=== PATIENT | female | born 1950 | race Caucasian/White ===

== ENCOUNTER 2024-04-23 08:26 | Inpatient (IN) ==
--- NOTE | 2024-01-24 15:29 | PAT Medication Instructions ---
Medication Instructions Date of Service January 24, 2024 Home Medications acetaminophen 500 mg tablet 500 mg PO QID PRN Pain alendronate 70 mg tablet 70 mg PO WK amlodipine 5 mg tablet 5 mg PO QAM apixaban 2.5 mg tablet (Eliquis) 2.5 mg PO BID ascorbic acid 30 mg-collagen, hydrolyzed 833.3 mg tablet (Collagen Skin Renewal) 1 tab PO DAILY aspirin 81 mg capsule 81 mg PO DAILY atenolol 25 mg tablet 25 mg PO HS calcium 500 mg-vitamin D3 100 unit-vitamin K 40 mcg chewable tablet 1 tab PO BID cholecalciferol (vitamin D3) 25 mcg (1,000 unit) chewable tablet (Vitamin D3) 25 mcg PO BID clobetasol 0.05 % topical gel 1 applic topical DAILY PRN Skin Irritation folic acid 800 mcg tablet 0.16 mg PO BID gabapentin 100 mg capsule 300 mg PO HS hydroxychloroquine 200 mg tablet 200 mg PO BID indapamide 2.5 mg tablet 2.5 mg PO QAM ketoconazole 1 % shampoo 1 applic topical Q3D linaclotide 145 mcg capsule (Linzess) 145 mcg PO QAM loratadine 10 mg tablet (Claritin) 10 mg PO DAILY PRN Allergic Symptoms methotrexate 2.5 mg/mL oral solution 12.5 mg PO WK potassium chloride 20 mEq tablet,extended release 20 meq PO BID sertraline 50 mg tablet 50 mg PO HS ASK your prescriber and surgeon alendronate 70 mg tablet 70 mg PO WK apixaban 2.5 mg tablet (Eliquis) 2.5 mg PO BID hydroxychloroquine 200 mg tablet 200 mg PO BID methotrexate 2.5 mg/mL oral solution 12.5 mg PO WK STOP taking 2 weeks before surgery ascorbic acid 30 mg-collagen, hydrolyzed 833.3 mg tablet (Collagen Skin Renewal) 1 tab PO DAILY STOP taking 24 hours before surgery clobetasol 0.05 % topical gel 1 applic topical DAILY PRN Skin Irritation ketoconazole 1 % shampoo 1 applic topical Q3D DO NOT take the morning of surgery calcium 500 mg-vitamin D3 100 unit-vitamin K 40 mcg chewable tablet 1 tab PO BID cholecalciferol (vitamin D3) 25 mcg (1,000 unit) chewable tablet (Vitamin D3) 25 mcg PO BID folic acid 800 mcg tablet 0.16 mg PO BID linaclotide 145 mcg capsule (Linzess) 145 mcg PO QAM loratadine 10 mg tablet (Claritin) 10 mg PO DAILY PRN Allergic Symptoms indapamide 2.5 mg tablet 2.5 mg PO QAM potassium chloride 20 mEq tablet,extended release 20 meq PO BID Take morning of surgery With a small sip of water, OTHERWISE NOTHING TO EAT OR DRINK AFTER MIDNIGHT: acetaminophen 500 mg tablet 500 mg PO QID PRN Pain (if needed) amlodipine 5 mg tablet 5 mg PO QAM aspirin 81 mg capsule 81 mg PO DAILY (unless surgeon directed otherwise) Take evening before surgery acetaminophen 500 mg tablet 500 mg PO QID PRN Pain (if needed) atenolol 25 mg tablet 25 mg PO HS calcium 500 mg-vitamin D3 100 unit-vitamin K 40 mcg chewable tablet 1 tab PO BID cholecalciferol (vitamin D3) 25 mcg (1,000 unit) chewable tablet (Vitamin D3) 25 mcg PO BID folic acid 800 mcg tablet 0.16 mg PO BID gabapentin 100 mg capsule 300 mg PO HS loratadine 10 mg tablet (Claritin) 10 mg PO DAILY PRN Allergic Symptoms (if needed) potassium chloride 20 mEq tablet,extended release 20 meq PO BID sertraline 50 mg tablet 50 mg PO HS Other Notes If you have any questions please call us at [phone] or [phone] or [phone] or [phone]
--- NOTE | 2024-02-01 12:29 | Anesthesiology Consultation ---
Date of Service February 01, 2024 Assessment & Plan (1) Encounter for pre-operative examination: - Infectious disease screening: Per assessment on 02/01/24- No known recent infectious disease contacts or current infectious disease symptoms. - Eliquis instructions per surgeon/prescriber - Patient acceptable risk for surgery pending surgeon-ordered PCP (Yoko GOU, appt 02/08) and cardiology (Dr. Naqvi/Simone, appt 02/09) preop evaluations. Chart Review Chart Review: Patient seen in Pre Admission Testing Teaching & Discussion Pre-Anesthesia Teaching/Discussion Notes: Instructed NPO after midnight before surgery,except medications with 15 cc of water. Medication instructions provided according to the PAT guidelines. History Surgery Operation Date: 02/24/24 07:45 Proposed Procedures p L3-S1 Decompression and Fusion, Spinal Cord Monitoring - Dudley Pyle DO Height/Weight Height: 5 ft 5 in Weight: 97.5 kg Allergies Allergy/AdvReac Type Severity Reaction Status Date / Time metronidazole [From Flagyl] Allergy Unknown Unknown Verified 01/24/24 13:32 Sulfa (Sulfonamide Allergy Unknown Hives Verified 01/24/24 13:32 Antibiotics) tetracycline Allergy Unknown Facial Verified 02/01/24 13:28 swelling codeine AdvReac Unknown Gastrointestinal Verified 01/24/24 13:32 Upset oxycodone AdvReac Unknown Gastrointestinal Verified 01/24/24 13:32 Upset Medications Home Medications Medication Instructions Recorded Confirmed Last Taken acetaminophen 500 mg tablet 500 mg PO QID PRN Pain 01/24/24 01/24/24 Unknown alendronate 70 mg tablet 70 mg PO WK 01/24/24 01/24/24 Unknown amlodipine 5 mg tablet 5 mg PO QAM 01/24/24 01/24/24 Unknown apixaban 2.5 mg tablet (Eliquis) 2.5 mg PO BID 01/24/24 01/24/24 Unknown ascorbic acid 30 mg-collagen, 1 tab PO DAILY 01/24/24 01/24/24 Unknown hydrolyzed 833.3 mg tablet (Collagen Skin Renewal) aspirin 81 mg capsule 81 mg PO DAILY 01/24/24 01/24/24 Unknown atenolol 25 mg tablet 25 mg PO HS 01/24/24 01/24/24 Unknown calcium 500 mg-vitamin D3 100 1 tab PO BID 01/24/24 01/24/24 Unknown unit-vitamin K 40 mcg chewable tablet cholecalciferol (vitamin D3) 25 25 mcg PO BID 01/24/24 01/24/24 Unknown mcg (1,000 unit) chewable tablet (Vitamin D3) clobetasol 0.05 % topical gel 1 applic topical DAILY PRN Skin 01/24/24 01/24/24 Unknown Irritation folic acid 800 mcg tablet 0.16 mg PO BID 01/24/24 01/24/24 Unknown gabapentin 100 mg capsule 300 mg PO HS 01/24/24 01/24/24 Unknown hydroxychloroquine 200 mg tablet 200 mg PO BID 01/24/24 01/24/24 Unknown indapamide 2.5 mg tablet 2.5 mg PO QAM 01/24/24 01/24/24 Unknown ketoconazole 1 % shampoo 1 applic topical Q3D 01/24/24 01/24/24 Unknown linaclotide 145 mcg capsule 145 mcg PO QAM 01/24/24 01/24/24 Unknown (Linzess) loratadine 10 mg tablet (Claritin) 10 mg PO DAILY PRN Allergic 01/24/24 01/24/24 Unknown Symptoms methotrexate 2.5 mg/mL oral 12.5 mg PO WK 01/24/24 01/24/24 Unknown solution potassium chloride 20 mEq 20 meq PO BID 01/24/24 01/24/24 Unknown tablet,extended release sertraline 50 mg tablet 50 mg PO HS 01/24/24 01/24/24 Unknown Past Medical History Medical History Anxiety Back pain COPD (chronic obstructive pulmonary disease) Depression Fibromyalgia HTN (hypertension) Follows with Dr. Naqvi/Simone Hx of deep venous thrombosis (~2022) RLE Taking Eliquis IBS (irritable bowel syndrome) Neuropathy Osteoarthritis Pre-diabetes Pulmonary nodule Monitoring Follows w/[facility] Pulmonology Rheumatoid arthritis Seasonal allergies Sleep apnea CPAP (compliant) Exercise / Class Metabolic Activity III < 4 Walking/Shop/Light housework Past Surgical History Surgical History History of bilateral knee replacement History of esophagogastroduodenoscopy (EGD) History of right shoulder replacement Hx of bilateral cataract extraction Hx of cardiac catheterization 2012- no stents, "normal coronary arteries" Hx of cholecystectomy Hx of colonoscopy Hx of hysterectomy Past Anesthesia History No Hx of Anesthesia Complications and No Family Hx of Anesthesia Complications History of PONV No Hx of PONV and No Hx of Motion Sickness Social History Smoking Status: Never smoker Do You Dip or Chew Tobacco: No Hx Alcohol Use: No Hx Substance Use: No substance use type: does not use Review of Systems Patient denies chest pain, shortness of breath, fever, chills, cough, wheezing, palpitations. Physical Exam Vital Signs BP 113/76 P 69 SP02 96%RA RESP 16 Physical Full cervical extension range of motion. Full TMJ range of motion. TMD >3.5 finger breaths Mallampati Score II Dentition: full upper/lower dentures Lungs: clear throughout to auscultation Cardiac: regular rate and rhythm, no murmurs noted Spine: normal Carotid arteries: negative bruit Extremities: no LE edema Lab Results Anesthesia Preop Results Results Anesthesia Widget: WBC 8.53 K/ul (4.8-10.8) 02/01/24 Hgb 13.0 g/dl (12.0-16.0) 02/01/24 Hct 38.4 % (37.0-47.0) 02/01/24 Plt 243 K/uL (130-400) 02/01/24 Na 134 mmol/L (136-145) L 02/01/24 K 3.4 mmol/L (3.5-5.1) L 02/01/24 Cl 96 mmol/L (98-107) L 02/01/24 CO2 30 mmol/L (21-32) 02/01/24 BUN 15 mg/dl (6-23) 02/01/24 Creat 0.62 mg/dl (0.6-1.2) 02/01/24 Glucose Level 102 mg/dl (70-99(Fasting)) H 02/01/24 PT 11.9 Seconds (9.0-12.0) 02/01/24 PTT 30 Seconds (21-31) 02/01/24 INR 1.1 (0.9-1.1) 02/01/24 Urine Color Yellow 02/01/24 Urine Appearance Clear (Clear) 02/01/24 Urine pH 6.5 (4.5-7.5) 02/01/24 Urine Specific [place] 1.012 (1.000-1.030) 02/01/24 Urine Protein Negative (Negative) 02/01/24 Urine Glucose (UA) Negative (Negative) 02/01/24 Urine Ketones Negative (Negative) 02/01/24 Urine Blood Negative (Negative) 02/01/24 Urine Nitrite Negative (Negative) 02/01/24 Urine Bilirubin Negative (Negative) 02/01/24 Urine Urobilinogen Negative (Negative) 02/01/24 Urine Leukocyte Esterase Trace (Negative) H 02/01/24 Urine WBC (Auto) 0-5 /hpf (0-5) 02/01/24 Urine RBC (Auto) 6-10 /hpf (0-2) H 02/01/24 Urine Hyaline Casts (Auto) 0-2 /lpf (0-2) 02/01/24 Urine Epithelial Cells (Auto) 0-2 /hpf (0-2) 02/01/24 Urine Bacteria (Auto) None Seen (None Seen) 02/01/24 Blood Type A Positive 02/01/24 Antibody Screen NEGATIVE 02/01/24 Testing Electrocardiogram Date: 02/01/24 NSR at 70bpm. "Normal ECG" Chest X-Ray Date: 02/01/24 FINDINGS: The lungs are clear. Cardiomediastinal silhouette is within normal limits. No acute osseous abnormalities. No pleural effusion or pneumothorax. Right reverse shoulder arthroplasty changes are noted. IMPRESSION: No acute cardiopulmonary findings. Echocardiogram Date: 02/08/23 LVEF 55-60%. Mild AR/MR/TR. Grade 1 diastolic dysfunction. Cervical Spine Date: 02/01/24 FINDINGS: There is straightening of the normal cervical lordosis, possibly secondary to muscle spasm. Cervical height and alignment otherwise appear normal. C5-C6 and C6-C7 disc space narrowing with marginal osteophytes. No listhesis with flexion or extension. No osseous lesions or levels suspicious for fracture are seen. There is no evidence of prevertebal soft tissue swelling. IMPRESSION: Straightening of the normal cervical lordosis, possibly secondary to muscle spasm. Mild degenerative change without acute osseous abnormality of the cervical spine. No dynamic instability.
--- NOTE | 2024-04-06 10:25 | PAT Medication Instructions ---
Medication Instructions Date of Service April 06, 2024 Home Medications acetaminophen 500 mg tablet 500 mg PO QID PRN alendronate 70 mg tablet 70 mg PO Q7D amlodipine 5 mg tablet 5 mg PO QAM apixaban 2.5 mg tablet (Eliquis) 2.5 mg PO BID aspirin 81 mg capsule 81 mg PO HS atenolol 25 mg tablet 25 mg PO HS calcium 500 mg-vitamin D3 100 unit-vitamin K 40 mcg chewable tablet 1 tab PO BID cholecalciferol (vitamin D3) 25 mcg (1,000 unit) chewable tablet (Vitamin D3) 25 mcg PO BID clobetasol 0.05 % topical gel 1 applic topical DAILY PRN folic acid 800 mcg tablet 0.16 mg PO BID gabapentin 100 mg capsule 100 mg PO QAM hydroxychloroquine 200 mg tablet 200 mg PO BID indapamide 2.5 mg tablet 2.5 mg PO QAM ketoconazole 1 % shampoo 1 applic topical Q3D linaclotide 145 mcg capsule (Linzess) 145 mcg PO QAM potassium chloride 20 mEq tablet,extended release 20 meq PO BID sertraline 50 mg tablet 50 mg PO HS collagen 1 dose PO DAILY gabapentin 300 mg capsule 300 mg PO HS loratadine 10 mg tablet 10 mg PO DAILY PRN methotrexate sodium 2.5 mg tablet 12.5 mg PO Q7D sodium chloride 5 % eye drops (Tejinder 128) 1 drp ophthalmic (eye) QID STOP 7 days before surgery if okay with prescribing provider; notify PAT department if prescribing provider has concerns with stopping medication methotrexate sodium 2.5 mg tablet 12.5 mg PO Q7D ASK your prescriber and surgeon apixaban 2.5 mg tablet (Eliquis) 2.5 mg PO BID aspirin 81 mg capsule 81 mg PO HS hydroxychloroquine 200 mg tablet 200 mg PO BID indapamide 2.5 mg tablet 2.5 mg PO QAM STOP taking 2 weeks before surgery (or as soon as possible if surgery is within 2 weeks) calcium 500 mg-vitamin D3 100 unit-vitamin K 40 mcg chewable tablet 1 tab PO BID collagen 1 dose PO DAILY STOP taking 24 hours before surgery clobetasol 0.05 % topical gel 1 applic topical DAILY PRN ketoconazole 1 % shampoo 1 applic topical Q3D DO NOT take the morning of surgery alendronate 70 mg tablet 70 mg PO Q7D cholecalciferol (vitamin D3) 25 mcg (1,000 unit) chewable tablet (Vitamin D3) 25 mcg PO BID folic acid 800 mcg tablet 0.16 mg PO BID linaclotide 145 mcg capsule (Linzess) 145 mcg PO QAM potassium chloride 20 mEq tablet,extended release 20 meq PO BID loratadine 10 mg tablet 10 mg PO DAILY PRN Take morning of surgery With a small sip of water, OTHERWISE NOTHING TO EAT OR DRINK AFTER MIDNIGHT: acetaminophen 500 mg tablet 500 mg PO QID PRN(if needed) amlodipine 5 mg tablet 5 mg PO QAM gabapentin 100 mg capsule 100 mg PO QAM sodium chloride 5 % eye drops (Tejinder 128) 1 drp ophthalmic (eye) QID Take evening before surgery acetaminophen 500 mg tablet 500 mg PO QID PRN(if needed) atenolol 25 mg tablet 25 mg PO HS folic acid 800 mcg tablet 0.16 mg PO BID potassium chloride 20 mEq tablet,extended release 20 meq PO BID sertraline 50 mg tablet 50 mg PO HS gabapentin 300 mg capsule 300 mg PO HS sodium chloride 5 % eye drops (Tejinder 128) 1 drp ophthalmic (eye) QID Other Notes If you have any questions please call us at [phone] or [phone] or [phone] or [phone]
--- NOTE | 2024-04-09 11:16 | Anesthesiology Consultation ---
Date of Service April 09, 2024 Assessment & Plan (1) Encounter for pre-operative examination: awaiting: -upcoming 04/16/24 appointment with PCP, Ketan Donald, [facility]. - updated echocardiogram ordered by cardiology, Dr. Naqvi [facility] [place]. - cardiology clearance 03/28/24: "...EKG independently reviewed and interpreted by myself...sinus rhythm-low voltage in precordial leads...denies chest pain...01/2023 carotids-normal study...normal coronaries. ability to complete 4 METS...palpitations-stable brief, lasting seconds...likely PAC/PVC related...low risk...cleared for scheduled surgery..." Chart Review Chart Review: Pending: Refer to Additional Notes / Consult section and Patient seen in Pre Admission Testing Teaching & Discussion Pre-Anesthesia Teaching/Discussion Notes: Instructed NPO after midnight before surgery, except medications with 15 cc of water. Medication instructions provided according to the PAT guidelines. History Surgery Operation Date: 04/23/24 07:45 Proposed Procedures p L3-S1 Decompression and Fusion, Spinal Cord Monitoring - Dudley Pyle, Height/Weight Height: 5 ft 3 in Weight: 98.6 kg Allergies Allergy/AdvReac Type Severity Reaction Status Date / Time metronidazole [From Flagyl] Allergy Unknown Unknown Verified 04/04/24 09:56 Sulfa (Sulfonamide Allergy Unknown Hives Verified 04/04/24 09:56 Antibiotics) tetracycline Allergy Unknown Facial Verified 04/04/24 09:56 swelling codeine AdvReac Unknown Gastrointestinal Verified 04/04/24 09:56 Upset oxycodone AdvReac Unknown Gastrointestinal Verified 04/04/24 09:56 Upset diazepam [From Valium] AdvReac Gastrointestinal Verified 04/04/24 09:57 Upset Medications Home Medications Medication Instructions Recorded Confirmed Last Taken acetaminophen 500 mg tablet 500 mg PO QID PRN Pain 01/24/24 04/04/24 Unknown alendronate 70 mg tablet 70 mg PO Q7D 01/24/24 04/04/24 Unknown amlodipine 5 mg tablet 5 mg PO QAM 01/24/24 04/04/24 Unknown apixaban 2.5 mg tablet (Eliquis) 2.5 mg PO BID 01/24/24 04/04/24 Unknown aspirin 81 mg capsule 81 mg PO HS 01/24/24 04/04/24 Unknown atenolol 25 mg tablet 25 mg PO HS 01/24/24 04/04/24 Unknown calcium 500 mg-vitamin D3 100 1 tab PO BID 01/24/24 04/04/24 Unknown unit-vitamin K 40 mcg chewable tablet cholecalciferol (vitamin D3) 25 25 mcg PO BID 01/24/24 04/04/24 Unknown mcg (1,000 unit) chewable tablet (Vitamin D3) clobetasol 0.05 % topical gel 1 applic topical DAILY PRN Skin 01/24/24 04/04/24 Unknown Irritation folic acid 800 mcg tablet 0.16 mg PO BID 01/24/24 04/04/24 Unknown gabapentin 100 mg capsule 100 mg PO QAM 01/24/24 04/04/24 Unknown hydroxychloroquine 200 mg tablet 200 mg PO BID 01/24/24 04/04/24 Unknown indapamide 2.5 mg tablet 2.5 mg PO QAM 01/24/24 04/04/24 Unknown ketoconazole 1 % shampoo 1 applic topical Q3D 01/24/24 04/04/24 Unknown linaclotide 145 mcg capsule 145 mcg PO QAM 01/24/24 04/04/24 Unknown (Linzess) potassium chloride 20 mEq 20 meq PO BID 01/24/24 04/04/24 Unknown tablet,extended release sertraline 50 mg tablet 50 mg PO HS 01/24/24 04/04/24 Unknown collagen 1 dose PO DAILY 04/04/24 04/04/24 Unknown gabapentin 300 mg capsule 300 mg PO HS 04/04/24 04/04/24 Unknown loratadine 10 mg tablet 10 mg PO DAILY PRN Allergy Symptoms 04/04/24 04/04/24 Unknown methotrexate sodium 2.5 mg tablet 12.5 mg PO Q7D 04/04/24 04/04/24 Unknown sodium chloride 5 % eye drops 1 drp ophthalmic (eye) QID 04/04/24 04/04/24 Unknown (Tejinder 128) polyethylene glycol 3350 17 17 g PO QAM 04/09/24 04/09/24 Unknown gram/dose oral powder (Miralax) psyllium husk 0.52 gram capsule 0.52 g PO HS 04/09/24 04/09/24 Unknown Additional Notes: Patient was advised to not take miralax morning of surgery, can take metamucil the evening before surgery; these were also written on provided medication instructions. She denies additional medications or supplements. Past Medical History Medical History (Updated 04/09/24 @ 12:32 by Denise Gupta PA-C) Anxiety Back pain Constipation chronic, denies change or worsening COPD (chronic obstructive pulmonary disease) controlled, stable per pt; denies needing inhaler-states pulmonology advised her they felt she did not have COPD Depression Fibromyalgia History of diverticulitis last flare 6 months ago-denies needing surgery HTN (hypertension) controlled, stable per pt; follows with Dr. Naqvi/Simone Hx of deep venous thrombosis (~2022) RLE Taking Eliquis IBS (irritable bowel syndrome) Neck pain chronic, denies change or worsening, following with PCP and rheumatology Neuropathy feet Osteoarthritis Pre-diabetes Pulmonary nodule Monitoring Follows w/[facility] Pulmonology Rheumatoid arthritis Seasonal allergies Sleep apnea CPAP (compliant) Patient denies h/o stroke, seizures, heart attack, heart failure, or blood transfusions. Exercise / Class Metabolic Activity III < 4 Walking/Shop/Light housework (denies chest discomfort or shortness of breath with usual activities) Past Surgical History Surgical History History of bilateral knee replacement History of esophagogastroduodenoscopy (EGD) History of hernia repair (~2012) History of right shoulder replacement Hx of bilateral cataract extraction Hx of cardiac catheterization 2012- no stents, "normal coronary arteries" Hx of cholecystectomy Hx of colonoscopy Hx of hysterectomy Past Anesthesia History No Hx of Anesthesia Complications and No Family Hx of Anesthesia Complications History of PONV No Hx of PONV and No Hx of Motion Sickness Social History Smoking Status: Never smoker Do You Dip or Chew Tobacco: No Hx Alcohol Use: No Hx Substance Use: No substance use type: does not use Review of Systems Patient denies chest pain, shortness of breath, dyspnea on exertion, reflux, fever, chills, cough, wheezing, or palpitations. Physical Exam Vital Signs Vitals BP 109/71 P 67 TEMP 97.9 SP02 95% on RA RESP 18 Physical Patient resting comfortably in chair in no acute distress, alert and oriented, responding appropriately throughout visit Full cervical extension range of motion without pain TMD 3.5 finger breadths Mallampati Score 2 Dentition: edentulous, full upper and lower dentures Lungs: normal respiratory effort. Good air movement, clear throughout to auscultation, no adventitious breath sounds Cardiac: regular rate and rhythm, no murmurs noted Carotid arteries: negative bruit bilat Lab Results Anesthesia Preop Results Results Anesthesia Widget: PT 12.1 Seconds (9.0-12.0) H 04/09/24 PTT 31 Seconds (21-31) 04/09/24 INR 1.1 (0.9-1.1) 04/09/24 Urine Color Yellow 04/09/24 Urine Appearance Clear (Clear) 04/09/24 Urine pH 7.0 (4.5-7.5) 04/09/24 Urine Specific [place] 1.008 (1.000-1.030) 04/09/24 Urine Protein Negative (Negative) 04/09/24 Urine Glucose (UA) Negative (Negative) 04/09/24 Urine Ketones Negative (Negative) 04/09/24 Urine Blood Negative (Negative) 04/09/24 Urine Nitrite Negative (Negative) 04/09/24 Urine Bilirubin Negative (Negative) 04/09/24 Urine Urobilinogen Negative (Negative) 04/09/24 Urine Leukocyte Esterase 1+ (Negative) H 04/09/24 Urine WBC (Auto) 0-5 /hpf (0-5) 04/09/24 Urine RBC (Auto) 0-2 /hpf (0-2) 04/09/24 Urine Hyaline Casts (Auto) 0-2 /lpf (0-2) 04/09/24 Urine Epithelial Cells (Auto) 0-2 /hpf (0-2) 04/09/24 Urine Bacteria (Auto) None Seen (None Seen) 04/09/24 Blood Type A Positive 04/09/24 Antibody Screen NEGATIVE 04/09/24 Testing Laboratory Results 04/05/24 WBC: 5.1 H/H: PLATELETS: 175,000 SODIUM: 133 POTASSIUM: 4.2 CHLORIDE: 96 CO2: 28 BUN: 11 CREATININE: 0.5 GLUCOSE: 99 A1c: 5.8% Electrocardiogram Date: 03/28/24 Sinus rhythm, rate 77 bpm Low voltage in precordial leads Old anteroseptal infarct Chest X-Ray Date: 02/01/24 FINDINGS: The lungs are clear. Cardiomediastinal silhouette is within normal limits. No acute osseous abnormalities. No pleural effusion or pneumothorax. Right reverse shoulder arthroplasty changes are noted. IMPRESSION: No acute cardiopulmonary findings. Echocardiogram Date: 02/08/23 LVEF 55-60%. Mild AR/MR/TR. Grade 1 diastolic dysfunction. Cervical Spine Date: 02/01/24 FINDINGS: There is straightening of the normal cervical lordosis, possibly secondary to muscle spasm. Cervical height and alignment otherwise appear normal. C5-C6 and C6-C7 disc space narrowing with marginal osteophytes. No listhesis with flexion or extension. No osseous lesions or levels suspicious for fracture are seen. There is no evidence of prevertebal soft tissue swelling. IMPRESSION: Straightening of the normal cervical lordosis, possibly secondary to muscle spasm. Mild degenerative change without acute osseous abnormality of the cervical spine. No dynamic instability.
[2024-04-23] MEDS: LACTATED RINGER'S 1,000 ML IV SCH ×2 (09:32→10:01)
[2024-04-23] MEDS: LR 60ML/HR IV SCH (10:02)
[2024-04-23] MEDS ORDERED: PROPOFOL IV EMULSION 10 MG/ML 20 ML VIAL IV ONE (10:12)
[2024-04-23] MEDS ORDERED: fentaNYL citrate PF 100 MCG/2 ML VIAL ONE ×2 (10:12→12:49)
[2024-04-23] MEDS ORDERED: ROCURONIUM BROMIDE 10 MG/ML 5 ML VIAL IV ONE ×2 (10:12→13:04)
[2024-04-23] MEDS ORDERED: ONDANSETRON INJ 2 MG/ML 2 ML VIAL ONE (10:12)
[2024-04-23] MEDS ORDERED: DEXAMETHASONE SOD INJ 4 MG/ML VIAL ONE (10:12)
[2024-04-23] MEDS ORDERED: SUGAMMADEX SODIUM 200 MG/2 ML VIAL IV ONE (10:14)
[2024-04-23] MEDS: ACETAMINOPHEN 500 MG TAB PO SCH (10:18)
[2024-04-23] MEDS: GABAPENTIN 300 MG CAP PO SCH ×2 (10:19→20:08)
[2024-04-23] MEDS: CeleBREX 200 MG CAP PO SCH (10:19)
[2024-04-23] MEDS ORDERED: ONDANSETRON INJ 2 MG/ML 2 ML VIAL IV PRN (11:47)
[2024-04-23] MEDS ORDERED: ePHEDrine sulfate 50 MG/ML AMP IV PRN (11:47)
[2024-04-23] MEDS ORDERED: ATROPINE SULFATE 0.1 MG/ML 10ML SYR IV PRN (11:47)
--- NOTE | 2024-04-23 11:56 | History & Physical Bridge Note ---
Date of Service April 23, 2024 History & Physical Bridge Note I have examined the patient, reviewed the History & Physical and in the interval since the performance of the History & Physical I have noted the following changes of clinical significance: no changes noted
--- NOTE | 2024-04-23 11:57 | History & Physical Report ---
Date of Service April 23, 2024 Assessment & Plan (1) Multilevel lumbosacral spondylosis with radiculopathy: Plan: L3-S1 decompression and fusion History of Present Illness Chief Complaint: Back and bilateral leg pain Primary Care Provider: Yoko Middleton This is a 73-year-old female presents with chronic persistent back and bilateral leg pain after failing course of nonoperative care is here for surgical invention. Allergies Allergy/AdvReac Type Severity Reaction Status Date / Time metronidazole [From Flagyl] Allergy Intermediate Diarrhea Verified 04/23/24 09:30 Sulfa (Sulfonamide Allergy Intermediate Hives Verified 04/23/24 09:30 Antibiotics) tetracycline Allergy Intermediate Facial Verified 04/23/24 09:30 swelling codeine AdvReac Intermediate Gastrointestinal Verified 04/23/24 09:30 Upset diazepam [From Valium] AdvReac Intermediate Gastrointestinal Verified 04/23/24 09:30 Upset oxycodone AdvReac Intermediate Gastrointestinal Verified 04/23/24 09:30 Upset Home Medications Medication Instructions Recorded Confirmed Type acetaminophen 500 mg tablet 500 mg PO QID PRN Pain 01/24/24 04/23/24 History alendronate 70 mg tablet 70 mg PO Q7D 01/24/24 04/23/24 History amlodipine 5 mg tablet 5 mg PO QAM 01/24/24 04/23/24 History apixaban 2.5 mg tablet (Eliquis) 2.5 mg PO BID 01/24/24 04/23/24 History aspirin 81 mg capsule 81 mg PO HS 01/24/24 04/23/24 History atenolol 25 mg tablet 25 mg PO HS 01/24/24 04/23/24 History calcium 500 mg-vitamin D3 100 1 tab PO BID 01/24/24 04/23/24 History unit-vitamin K 40 mcg chewable tablet cholecalciferol (vitamin D3) 25 25 mcg PO BID 01/24/24 04/23/24 History mcg (1,000 unit) chewable tablet (Vitamin D3) clobetasol 0.05 % topical gel 1 applic topical DAILY PRN Skin 01/24/24 04/23/24 History Irritation folic acid 800 mcg tablet 0.16 mg PO BID 01/24/24 04/23/24 History gabapentin 100 mg capsule 100 mg PO QAM 01/24/24 04/23/24 History hydroxychloroquine 200 mg tablet 200 mg PO BID 01/24/24 04/23/24 History (Plaquenil) indapamide 2.5 mg tablet 2.5 mg PO QAM 01/24/24 04/23/24 History ketoconazole 1 % shampoo 1 applic topical Q3D 01/24/24 04/23/24 History linaclotide 145 mcg capsule 145 mcg PO QAM 01/24/24 04/23/24 History (Linzess) potassium chloride 20 mEq 20 meq PO BID 01/24/24 04/23/24 History tablet,extended release sertraline 50 mg tablet (Zoloft) 50 mg PO HS 01/24/24 04/23/24 History collagen 1 dose PO DAILY 04/04/24 04/23/24 History gabapentin 300 mg capsule 300 mg PO HS 04/04/24 04/23/24 History loratadine 10 mg tablet (Claritin) 10 mg PO DAILY PRN Allergy Symptoms 04/04/24 04/23/24 History methotrexate sodium 2.5 mg tablet 12.5 mg PO Q7D 04/04/24 04/23/24 History sodium chloride 5 % eye drops 1 drp ophthalmic (eye) QID 04/04/24 04/23/24 History (Tejinder 128) polyethylene glycol 3350 17 17 g PO QAM 04/09/24 04/23/24 History gram/dose oral powder (Miralax) psyllium husk 0.52 gram capsule 0.52 g PO HS 04/09/24 04/23/24 History Past Med/Surg History Problem List (Updated 04/23/24 @ 11:57 by Dudley Pyle DO) Multilevel lumbosacral spondylosis with radiculopathy Medical History (Updated 04/23/24 @ 11:57 by Dudley Pyle DO) Neck pain chronic, denies change or worsening, following with PCP and rheumatology Constipation chronic, denies change or worsening History of diverticulitis last flare 6 months ago-denies needing surgery Depression Anxiety Pulmonary nodule Monitoring Follows w/[facility]ology Back pain Seasonal allergies IBS (irritable bowel syndrome) Fibromyalgia Osteoarthritis Rheumatoid arthritis Pre-diabetes Neuropathy feet Hx of deep venous thrombosis (~2022) RLE Taking Eliquis HTN (hypertension) controlled, stable per pt; follows with Dr. Naqvi/Simone COPD (chronic obstructive pulmonary disease) controlled, stable per pt; denies needing inhaler-[facility] pulmonology advised her they felt she did not have COPD Sleep apnea CPAP (compliant) Surgical History History of hernia repair (~2012) Hx of cardiac catheterization 2012- no stents, "normal coronary arteries" History of esophagogastroduodenoscopy (EGD) Hx of colonoscopy Hx of bilateral cataract extraction Hx of cholecystectomy Hx of hysterectomy History of right shoulder replacement History of bilateral knee replacement Social History Smoking Status: Never smoker Second Hand Exposure: No; Do You Dip or Chew Tobacco: No; Tobacco Cessation Education Requested by Patient: No Hx Alcohol Use: No Hx Substance Use: No Preferred Language: [place] Communication Ability: Effective Prospect Manager Required: No Beliefs That Will Affect Care: None Current Living Situation: Spouse Other Information That Helps Us Care for You: No Feels Safe at Home: Yes Safety Concerns: Feels Safe At This Time Assistive Devices: CPAP, Denture - Upper, Denture - Lower, Glasses and Other Assistive Devices Comment: special cart to use outside of the home Physical Exam Physical Exam: Patient is alert and oriented heart regular rhythm Lungs clear Results & Data Results & Data Vital Signs (Past 12 Hours) Vital Signs Temp Pulse Resp BP Pulse Ox O2 Del Method 04/23/24 09:44 36.9 C 66 20 107/72 96 Room Air
[2024-04-23] MEDS: ceFAZolin 2000MG 2,000 MG/15 ML SYR IV SCH ×2 (12:43→20:05)
[2024-04-23] MEDS: BUPIVACAINE/EPINEPHRINE 0.25% 1:200,000 30 ML VIAL ONE (13:01)
[2024-04-23] MEDS ORDERED: HYDROmorphone INJ 2 MG/ML SYR/VIAL ONE (14:26)
[2024-04-23] MEDS: FLOSEAL HEMOSTATIC MATRIX 10ML TOP ONE (14:43)
[2024-04-23] MEDS: ceFAZolin 330 MG/ML 1 GM VIAL ONE (14:43)
--- NOTE | 2024-04-23 14:43 | Operative Report ---
Post Operative Report Pre & Post Diagnosis Operation Date: 04/23/24 10:05 Pre-Op Diagnosis: #1 lumbar spondylolisthesis with radiculopathy. #2 multilevel lumbar spondylosis with radiculopathy Post-Op Diagnosis: Same I identified the patient and participated in the time-out.: Yes Procedure Operation Date: 04/23/24 10:05 Actual Procedures #1 lumbar decompression with bilateral medial facetectomies and foraminotomies L3-L4, L4-5 and L5-S1 #2 posterior spinal fusion L3-S1. #3 placed posterior segmental instrumentation L3-S1. #4 interbody fusion L4-L5 L5-S1. #5 placement Spira 14 x 26 mm x 2 at L4-L5 and 13 x 26 mm x 2 at L5-S1. #6 placement locally harvested morselized autograft in the posterior gutters per #7 placement infuse collagen sponge, with Koros in the posterior gutters and os design interbody space. #8 application of versa wrap of the exposed dura. Surgeon Dudley Pyle, DO Bag Sewer Beatriz Brown Estimated Blood Loss 600 Findings See Below The patient is 5 foot 3 weighing over 97 kg with a BMI in excess of 38. This combined with an EBL of greater than 600 cc created significant technical difficulty with the positioning exposure and the procedure itself. This at least 50% increased operative time. I am recommending a modifier 22. Specimens None Indications This is a 73-year-old female that presents problems diagnosis after failing course of nonoperative care is here for surgical invention. Description of Procedure Patient was met with identified informed consent obtained. Patient was then taken to the operative suite underwent intubation placed in a prone position on the Trey table on top of the Ramon frame. All bony promises well-padded eyes inspected to ensure no external pressure placed upon them. This point the lumbar spine was prepped and draped in normal sterile fashion. Sharp dissection with the assistance of Bovie cautery performed down to and exposing the lamina and transverse processes of L3 L4-5 and the sacral ala bilaterally. From caudal to cephalad fashion complete laminectomy L5 was performed including bilateral mid facetectomies and foraminotomies addressing severe spinal stenosis. This is followed by complete laminectomy of L4 again with bilateral medial facetectomies and foraminotomies addressing severe spinal stenosis and lastly laminectomy of L3 with bilateral medial facetectomies and foraminotomies addressing severe spinal stenosis. Pedicle screws were then placed in L3-L4-L5 and S1 levels bilaterally with assistance of fluoroscopy in the process fatuma contoured and placed. By way of transforaminal approach on the right discectomy of L5-S1 was performed endplates corrected to subcortical bleeding bone and a 13 x 26 mm Spira cage filled with os design bone graft tapped in position. Then proceeded to the left transforaminal region at L5-S1. Again discectomy performed. Endplates guarded to subcortical main bone and a second 13 x 26 mm spiral cage filled with os design bone graft tapped position. Then proceeded to L4-[address] of a transforaminal portion of right a discectomy was performed endplates guided to subcortical bleeding bone and a 14 x 26 mm Spira cage filled with os design bone graft tapped in position. Then proceeded to the left transforaminal region at L4-5. Again discectomy performed. Endplates guided to subcortical bleeding bone. A second 14 x 26 mm spiral cage filled with os design tapped into position. The rods are then compressed locked in final position bilaterally. The transverse processes of L3 L4-5 and the sacral ala burred to subcortical bleeding bone. Infuse collagen sponge, with Koros and local autograft placed in the posterior lateral gutters. 15 round ALHAJI drain inserted. Versa wrap placed over the exposed dura. The incision was then closed with 1 Vicryl the fascia 2-0 Vicryl subcutaneously and 4 Monocryl for final skin closure. Steri-Strips sterile dressing placed. Patient waken taken to PACU stable condition. Please note spinal cord monitoring was utilized at the procedure no changes noted. Beatriz Brown was present throughout the entire procedure involved in patient positioning complex portions of the surgery and final skin closure. I attest to the content of the Intraoperative Record and any orders documented therein. Any exceptions are noted below.
--- NOTE | 2024-04-23 14:46 | Fluoroscopy Report ---
FL lumbar spine 2-3V CLINICAL HISTORY: L3-S1 DECOMPRESSION AND FUSION COMPARISON STUDY: None FLUOROSCOPY TIME: 29 seconds FLUOROSCOPY IMAGES: 3 EXPOSURE DOSE: 22 mGy FINDINGS: Fluoroscopy was provided for lumbar metallic fusion. IMPRESSION: Intraoperative fluoroscopy. ACT 112: Negative or not required by law. Electronically signed by: Dominic Edwards M.D. 04/23/2024 2:45 PM
[2024-04-23] MEDS: fentaNYL citrate PF 100 MCG/2 ML VIAL IV PRN (15:07)
[2024-04-23] MEDS ORDERED: HYDROmorphone INJ 0.5 MG/0.5 ML SYR IV PRN (15:57)
[2024-04-23] MEDS ORDERED: LORazepam 2 MG/1 ML VIAL IV PRN (15:57)
[2024-04-23] MEDS ORDERED: FAMOTIDINE 20 MG TAB PO PRN (15:57)
[2024-04-23] MEDS ORDERED: NALOXONE HCL 0.4 MG/1 ML VIAL/CARP IV PRN (15:57)
[2024-04-23] MEDS ORDERED: SOD PHOSPHATE/SOD BIPHOSPHATE ENEMA 132 ML BTL PR PRN (15:57)
[2024-04-23] MEDS ORDERED: DO NOT ADMINISTER PNEUMOCOCCAL VACCINE PRN (15:57)
[2024-04-23] MEDS ORDERED: ONDANSETRON 4 MG OD TAB PO PRN (15:57)
[2024-04-23] MEDS ORDERED: HYDROmorphone INJ 1 MG/ML SYRINGE IV PRN (15:57)
[2024-04-23] MEDS ORDERED: LORazepam 0.5 MG TAB PO PRN (15:57)
[2024-04-23] MEDS ORDERED: DO NOT ADMINISTER FLU VACCINE PRN (15:57)
[2024-04-23] MEDS ORDERED: ACETAMINOPHEN 1,000 MG/100 ML VIAL IV PRN (15:57)
[2024-04-23] MEDS ORDERED: METOCLOPRAMIDE HCL INJ 5 MG/ML 2 ML VIAL IV PRN (15:57)
[2024-04-23] MEDS ORDERED: ALUMINUM/MAGNESIUM SUSP 30 ML UDC PO PRN (15:57)
[2024-04-23] MEDS ORDERED: PROMETHAZINE 12.5 MG/50.5 ML BAG IV PRN (15:57)
[2024-04-23] MEDS ORDERED: MAGNESIUM HYDROXIDE SUSP 30 ML UDC PO PRN (15:57)
[2024-04-23] MEDS ORDERED: diphenhydrAMINE Capsule 25 MG CAP PO PRN (15:57)
[2024-04-23] MEDS ORDERED: bisacodyL 10 MG SUPP PR PRN (15:57)
[2024-04-23] MEDS ORDERED: hydrOXYzine HCl 25 MG TAB PO PRN (15:57)
[2024-04-23] MEDS ORDERED: CLOBETASOL PROPIONATE 0.05% OINT 15 GM TUBE EXT PRN (16:02)
[2024-04-23] MEDS: traMADol HCL 50 MG TABLET PO PRN (16:50)
--- NOTE | 2024-04-23 17:10 | Consultation ---
Date of Consultation April 23, 2024 Assessment & Plan (1) Multilevel lumbosacral spondylosis with radiculopathy: (2) Rheumatoid arthritis: (3) Pre-diabetes: (4) Hx of deep venous thrombosis: (5) HTN (hypertension): Plan This is a 73-year-old female who has a significant past medical history of rheumatoid arthritis, IBS constipation type, fibromyalgia, depression with anxiety, neuropathy, history of DVT on Eliquis, sleep apnea, COPD and hypertension who presents for elective lumbar procedure by Dr. Pyle. #S/P L3-S1 lumbar decompression fusion tolerated procedure well EBL 600ml pain/wound management per ortho activity/therapy as prescribed by ortho monitor post op hgb (13.0 pre op) #RA: chronic, stable on mtx and hydroxychloroquine as outpt #Hx of DVT: on eliquis 2.5mg bid, based on criteria pt should be on 5mg bid, she will need to discuss this with her PCP, currently on hold, will need to be resumed at discretion of surgeon #HTN: chronic, stable on amlodipine, atenolol #Chronic Constipation/IBS: continue linzess, bowel regimen #ELLIE: Cpap at HS #Recent UTI: per pt she was on amoxicillin, looks like was prescribed on 04/19 to complete for 5 days. She would of completed 4 days. Will need to obtain urine culture from [facility] and will obtain repeat urine to ensure appropriately treated #Morbid Obesity - BMI 38.1, encourage diet/lifestyle measures when able Dispo: per primary FULL CODE PCP: Ketan Donald, [facility] I spent a total of 60 minutes coordinating, documenting and providing care for this patient excluding time spent in the performance of separately billed services or time spent by another provider/QHP. Thank you for this consultation. We will follow the patient with you during their hospital stay. You can reach a member of the [facility] Hospitalist Team 11/10 via hospitalist role on tiger text. Pt was seen and examined in collaboration with Dr. Rodriguez, please see addendum Supervising Physician Co-Signing Physician Notes Attending addendum: The patient was seen and examined in medical floor in presence of the family member She is a status post L3-S1 decompression and fusion Has been complaining of a lot of back pain with some numbness involving the extremities Denies any chest pain and/or palpitation, no nausea no vomiting On examination Lying in bed with some pain at the back Hemodynamically stable Chest was clear to auscultate bilaterally HeartS1-S2, regular Abdomenbenign with normal bowel sound Extremity no edema CNSalert, awake and oriented x 3 and moves all extremities Her admission labs and imaging studies reviewed Status post L3-S1 decompression and fusion Remains medically stable with other significant medical condition as mentioned above Agree with assessment and plan as outlined above by Glenny Ward PA-C and take the full responsibility of care in the hospital Dr Melchor Rodriguez History of Present Illness Requesting Physician: Dr. Pyle Reason for Consultation: post op medical management Attending Physician: Dudley Pyle, History of Present Illness This is a 73-year-old female who has a significant past medical history of rheumatoid arthritis, IBS constipation type, fibromyalgia, depression with anxiety, neuropathy, history of DVT on Eliquis, sleep apnea, COPD and hypertension who presents for elective lumbar procedure by Dr. Pyle. She underwent an L3-S1 decompression and fusion. She tolerated the procedure well. She currently is experiencing significant postoperative incisional back pain. She denies any current radicular symptoms. She denies any fever, chills, sweats, lightheadedness, dizziness, chest pain, shortness breath, nausea, vomiting. She is currently tolerating liquids. Her , son and soon-to-be [id number] are at bedside who also help elicit history. Patient is from [facility] and follows with a provider at the [facility]. She reports completing treatment for UTI with amoxcillin yesterday. She is on eliquis for a DVT dx in 2022 and this has been on hold since Tuesday (3 days prior). Allergies Allergy/AdvReac Type Severity Reaction Status Date / Time metronidazole [From Flagyl] Allergy Intermediate Diarrhea Verified 04/23/24 09:30 Sulfa (Sulfonamide Allergy Intermediate Hives Verified 04/23/24 09:30 Antibiotics) tetracycline Allergy Intermediate Facial Verified 04/23/24 09:30 swelling codeine AdvReac Intermediate Gastrointestinal Verified 04/23/24 09:30 Upset diazepam [From Valium] AdvReac Intermediate Gastrointestinal Verified 04/23/24 09:30 Upset oxycodone AdvReac Intermediate Gastrointestinal Verified 04/23/24 09:30 Upset Home Medications Medication Instructions Recorded Confirmed Type acetaminophen 500 mg tablet 500 mg PO QID PRN Pain 01/24/24 04/23/24 History alendronate 70 mg tablet 70 mg PO Q7D 01/24/24 04/23/24 History amlodipine 5 mg tablet 5 mg PO QAM 01/24/24 04/23/24 History apixaban 2.5 mg tablet (Eliquis) 2.5 mg PO BID 01/24/24 04/23/24 History aspirin 81 mg capsule 81 mg PO HS 01/24/24 04/23/24 History atenolol 25 mg tablet 25 mg PO HS 01/24/24 04/23/24 History calcium 500 mg-vitamin D3 100 1 tab PO BID 01/24/24 04/23/24 History unit-vitamin K 40 mcg chewable tablet cholecalciferol (vitamin D3) 25 25 mcg PO BID 01/24/24 04/23/24 History mcg (1,000 unit) chewable tablet (Vitamin D3) clobetasol 0.05 % topical gel 1 applic topical DAILY PRN Skin 01/24/24 04/23/24 History Irritation folic acid 800 mcg tablet 0.16 mg PO BID 01/24/24 04/23/24 History gabapentin 100 mg capsule 100 mg PO QAM 01/24/24 04/23/24 History hydroxychloroquine 200 mg tablet 200 mg PO BID 01/24/24 04/23/24 History (Plaquenil) indapamide 2.5 mg tablet 2.5 mg PO QAM 01/24/24 04/23/24 History ketoconazole 1 % shampoo 1 applic topical Q3D 01/24/24 04/23/24 History linaclotide 145 mcg capsule 145 mcg PO QAM 01/24/24 04/23/24 History (Linzess) potassium chloride 20 mEq 20 meq PO BID 01/24/24 04/23/24 History tablet,extended release sertraline 50 mg tablet (Zoloft) 50 mg PO HS 01/24/24 04/23/24 History collagen 1 dose PO DAILY 04/04/24 04/23/24 History gabapentin 300 mg capsule 300 mg PO HS 04/04/24 04/23/24 History loratadine 10 mg tablet (Claritin) 10 mg PO DAILY PRN Allergy Symptoms 04/04/24 04/23/24 History methotrexate sodium 2.5 mg tablet 12.5 mg PO Q7D 04/04/24 04/23/24 History sodium chloride 5 % eye drops 1 drp ophthalmic (eye) QID 04/04/24 04/23/24 History (Tejinder 128) polyethylene glycol 3350 17 17 g PO QAM 04/09/24 04/23/24 History gram/dose oral powder (Miralax) psyllium husk 0.52 gram capsule 0.52 g PO HS 04/09/24 04/23/24 History Patient History Medical History (Updated 04/23/24 @ 11:57 by Dudley Pyle, DO) Neck pain chronic, denies change or worsening, following with PCP and rheumatology Constipation chronic, denies change or worsening History of diverticulitis last flare 6 months ago-denies needing surgery Depression Anxiety Pulmonary nodule Monitoring Follows w/[facility] Pulmonology Back pain Seasonal allergies IBS (irritable bowel syndrome) Fibromyalgia Osteoarthritis Rheumatoid arthritis Pre-diabetes Neuropathy feet Hx of deep venous thrombosis (~2022) RLE Taking Eliquis HTN (hypertension) controlled, stable per pt; follows with Dr. Naqvi/Simone COPD (chronic obstructive pulmonary disease) controlled, stable per pt; denies needing inhaler-states pulmonology advised her they felt she did not have COPD Sleep apnea CPAP (compliant) Surgical History History of hernia repair (~2012) Hx of cardiac catheterization 2012- no stents, "normal coronary arteries" History of esophagogastroduodenoscopy (EGD) Hx of colonoscopy Hx of bilateral cataract extraction Hx of cholecystectomy Hx of hysterectomy History of right shoulder replacement History of bilateral knee replacement Social History Smoking Status: Never smoker Second Hand Exposure: No; Do You Dip or Chew Tobacco: No; Tobacco Cessation Education Requested by Patient: No Hx Alcohol Use: No Hx Substance Use: No Preferred Language: [place] Communication Ability: Effective Business Supervisor Required: No Beliefs That Will Affect Care: None Current Living Situation: Spouse Other Information That Helps Us Care for You: No Feels Safe at Home: Yes Safety Concerns: Feels Safe At This Time Assistive Devices: CPAP, Denture - Upper, Denture - Lower, Glasses and Other Assistive Devices Comment: special cart to use outside of the home Physical Exam Physical Exam: Constitutional: WD/WN, Morbidly obese, vitals as above, NAD, sitting up in bed, pleasant, conversing easily Head: Normocephalic, Atraumatic Eyes: PERRL, conjunctivae normal, anicteric sclerae ENMT: external ear and nose normal, oropharynx normal dry membranes Neck: trachea midline, no thyromegaly normal visual inspection Respiratory: normal respiratory effort, lungs clear to auscultation, no wheeze, rales, rhonchi. Normal insp/exp effort, no accessory muscle use on 2L of NC Cardiovascular: RRR, no murmur, no edema Vessels: no JVD or carotid bruit Chest: normal inspection of chest Abdomen: obese abd, normal bowel sounds, soft, nontender, no hepatosplenomegaly Musculoskeletal: no cyanosis or clubbing, AROM x 4, ALHAJI drain with serosanguineous drainage Skin: no rashes, warm and dry normal turgor Neurologic: PERRL, EOMI, accommodation nl, no face palsy, no dysarthria CN's II-XI intact bilaterally and moves all extremities Psychiatric: A+Ox3, euthymic affect Lymphatic: no cervical or axillary lymphadenopathy : deferred Results & Data Vital Signs (Past 12 Hours) Vital Signs Temp Pulse Pulse Resp BP BP Pulse Ox 04/23/24 16:50 59 L 18 111/65 97 04/23/24 16:20 66 16 128/77 96 04/23/24 16:05 36.4 C L 62 16 124/67 91 04/23/24 15:40 36.8 C 04/23/24 15:30 60 17 133/69 98 04/23/24 15:20 60 18 133/69 97 04/23/24 15:10 60 17 118/69 96 04/23/24 15:01 36.3 C L 64 17 131/74 96 04/23/24 09:44 36.9 C 66 20 107/72 96 O2 Del Method O2 Flow Rate 04/23/24 16:50 Nasal Cannula 2 04/23/24 16:20 Nasal Cannula 2 04/23/24 16:05 Nasal Cannula 2 04/23/24 15:40 04/23/24 15:30 Nasal Cannula 2 04/23/24 15:20 Oxymask 5 04/23/24 15:10 Oxymask 5 04/23/24 15:01 Oxymask 5 04/23/24 09:44 Room Air Laboratory Results I have independently reviewed and interpreted patient's admitting labs including CBC, CMP, UA Diagnostic Findings Lumbar Spine X-Ray 04/23/24 10:05 FL lumbar spine 2-3V CLINICAL HISTORY: L3-S1 DECOMPRESSION AND FUSION COMPARISON STUDY: None FLUOROSCOPY TIME: 29 seconds FLUOROSCOPY IMAGES: 3 EXPOSURE DOSE: 22 mGy FINDINGS: Fluoroscopy was provided for lumbar metallic fusion. IMPRESSION: Intraoperative fluoroscopy. ACT 112: Negative or not required by law. Electronically signed by: Dominic Edwards M.D. 04/23/2024 2:45 PM Medications Administered Current Inpatient Medications Acetaminophen (Acetaminophen 500 Mg Tab) 1,000 mg PO PREOP YENNY Stop: 04/23/24 18:00 Last Admin: 04/23/24 10:18 Dose: Not Given Acetaminophen (Acetaminophen 500 Mg Tab) 1,000 mg PO Q8H PRN PRN Reason: MILD Pain Scale 1,2,3 & Pre PT Stop: 05/23/24 15:56 Hydrocodone Bitart/Acetaminophen (Hydrocodone/Acetamophen 5/325mg Tab) 1 - 2 tab PO Q4H PRN PRN Reason: Pain & Pre PT Stop: 05/07/24 15:56 Al Hydrox/Mg Hydrox/Simethicone (Aluminum/Magnesium Susp 30 Ml Udc) 30 ml PO Q6H PRN PRN Reason: Dyspepsia Stop: 05/23/24 15:56 Amlodipine Besylate (Amlodipine Besylate 5 Mg Tab) 5 mg PO QAM YENNY Stop: 05/24/24 08:59 Aspirin (Aspirin 81 Mg Ectab) 81 mg PO HS YENNY Stop: 05/23/24 20:59 Atenolol (Atenolol 25 Mg Tablet) 25 mg PO HS YENNY Stop: 05/23/24 20:59 Atropine Sulfate (Atropine Sulfate 0.1 Mg/Ml 10ml Syr) 0.5 mg IV Q1M PRN PRN Reason: PACU Use-HR<40 &/or Bradycardi Stop: 04/23/24 19:47 Bisacodyl (Bisacodyl 10 Mg Supp) 10 mg MI DAILY PRN PRN Reason: Constipation Stop: 05/23/24 15:56 Calcium/Vitamin D (Calcium 600mg + Vit D 400 Iu Tab) 1 tab PO BID YENNY Stop: 05/23/24 20:59 Celecoxib (Celebrex 200 Mg Cap) 200 mg PO PREOP YENNY Stop: 04/23/24 18:00 Last Admin: 04/23/24 10:19 Dose: Not Given Clobetasol Propionate (Clobetasol Propionate 0.05% Oint 15 Gm Tube) 1 appln EXT DAILY PRN PRN Reason: Skin Irritation Stop: 05/23/24 16:01 Diphenhydramine HCl (Diphenhydramine Capsule 25 Mg Cap) 25 mg PO Q6H PRN PRN Reason: Allergic Rhinitis/Insomnia Stop: 05/23/24 15:56 Ephedrine Sulfate (Ephedrine Sulfate 50 Mg/Ml Amp) 5 mg IV Q5M PRN PRN Reason: PACU Use Only-SBP<90 mmHg Stop: 04/23/24 19:47 Famotidine (Famotidine 20 Mg Tab) 20 mg PO Q12H PRN PRN Reason: Dyspepsia Stop: 05/23/24 15:56 Folic Acid (Folic Acid 400 Mcg Tab) 1,600 mcg PO BID [facility] Stop: 05/23/24 20:59 Gabapentin (Gabapentin 300 Mg Cap) 300 mg PO PREOP [facility] Stop: 04/23/24 18:00 Last Admin: 04/23/24 10:19 Dose: Not Given Gabapentin (Gabapentin 100 Mg Cap) 100 mg PO QAM [facility] Stop: 05/24/24 08:59 Gabapentin (Gabapentin 300 Mg Cap) 300 mg PO HS [facility] Stop: 05/23/24 20:59 Hydromorphone HCl (Hydromorphone Inj 0.5 Mg/0.5 Ml Syr) 0.5 mg IV Q3H PRN PRN Reason: MODERATE Pain (Scale 4,5,6) & Pre PT Stop: 05/07/24 15:56 Hydromorphone HCl (Hydromorphone Inj 1 Mg/Ml Syringe) 1 mg IV Q3H PRN PRN Reason: SEVERE Pain (Scale 7,8,9,10) Stop: 05/07/24 15:56 Hydroxychloroquine Sulfate (Hydroxychloroquine Sulfate 200 Mg Tab) 200 mg PO BID [facility] Stop: 05/23/24 20:59 Hydroxyzine HCl (Hydroxyzine Hcl 25 Mg Tab) 25 mg PO Q8H PRN PRN Reason: Anxiety Stop: 05/23/24 15:56 Lactated Ringer's (Lr) 1,000 mls @ 15 mls/hr IV .Q24H YENNY Stop: 04/24/24 05:59 Last Admin: 04/23/24 10:01 Dose: Not Given Lactated Ringer's (Lr) 1,000 mls @ 60 mls/hr IV .[id number] YENNY Stop: 04/23/24 22:39 Last Admin: 04/23/24 10:02 Dose: Not Given Cefazolin Sodium (Ancef 2000mg) 2,000 mg in 15 mls @ 3.75 mls/min IV PREOP YENNY; Protocol Stop: 04/23/24 18:00 Last Admin: 04/23/24 12:43 Dose: 3.75 mls/min Lactated Ringer's (Lr) 1,000 mls @ 15 mls/hr IV .Q24H YENNY Stop: 04/24/24 05:59 Last Infusion: 04/23/24 12:23 Dose: Infused Acetaminophen (Ofirmev) 1,000 mg in 100 mls @ 400 mls/hr IV Q8H PRN PRN Reason: Pain Rating 1-3 & Pre PT Stop: 04/24/24 15:57 Cefazolin Sodium (Ancef 2000mg) 2,000 mg in 15 mls @ 3.75 mls/min IV Q8H [facility]; Protocol Stop: 04/24/24 05:03 Promethazine HCl (Phenergan) 12.5 mg in 50.5 mls @ 202 mls/hr IV Q6H PRN PRN Reason: Nausea And Vomiting Stop: 05/23/24 15:56 Dexamethasone 6 mg/ Syringe 1.5 mls @ 1 mls/min IV DAILY [facility] Stop: 04/26/24 09:02 Indapamide (Indapamide 1.25 Mg Tab) 2.5 mg PO QAM [facility] Stop: 05/24/24 08:59 Influenza Virus Vaccine Quadrival (Do Not Administer Flu Vaccine) 1 each N/A PRN PRN PRN Reason: Notification Stop: 05/23/24 15:56 Linaclotide (Linaclotide 145 Mcg Capsule) 145 mcg PO QAM [facility] Stop: 05/24/24 08:59 Lorazepam (Lorazepam 0.5 Mg Tab) 0.5 mg PO Q8H PRN PRN Reason: Sedation/Anxiety Stop: 05/23/24 15:56 Lorazepam (Lorazepam 2 Mg/1 Ml Vial) 0.5 mg IV Q8H PRN PRN Reason: Sedation/Anxiety Stop: 05/23/24 15:56 Magnesium Hydroxide (Magnesium Hydroxide Susp 30 Ml Udc) 30 ml PO Q24H PRN PRN Reason: Constipation Stop: 05/23/24 15:56 Metoclopramide HCl (Metoclopramide Hcl Inj 5 Mg/Ml 2 Ml Vial) 10 mg IV Q6H PRN PRN Reason: Nausea &/or Vomiting Stop: 05/23/24 15:56 Naloxone HCl (Naloxone Hcl 0.4 Mg/1 Ml Vial/Carp) 0.1 mg IV Q5M PRN PRN Reason: Oversedation/Resp depression Stop: 05/23/24 15:56 Ondansetron HCl (Ondansetron Inj 2 Mg/Ml 2 Ml Vial) 4 mg IV ONCE PRN PRN Reason: PACU Use Only-Nausea/Vomiting Stop: 04/23/24 19:48 Ondansetron HCl (Ondansetron Inj 2 Mg/Ml 2 Ml Vial) 4 mg IV Q6H PRN PRN Reason: Nausea &/or Vomiting Stop: 05/23/24 15:56 Ondansetron HCl (Ondansetron 4 Mg Od Tab) 4 mg PO Q6H PRN PRN Reason: Nausea Stop: 05/23/24 15:56 Pneumococcal Polyvalent Vaccine (Do Not Administer Pneumococcal Vaccine) 1 each N/A PRN PRN PRN Reason: Notification Stop: 05/23/24 15:56 Polyethylene Glycol (Polyethylene (Miralax) 17 Gm Pack) 17 gm PO Q6 YENNY Stop: 05/24/24 05:59 Potassium Chloride (Potassium Chloride Crtab 20 Meq Tabcr) 20 meq PO BID YENNY Stop: 05/23/24 20:59 Senna/Docusate Sodium (Docusate Sodium/Senna 50/8.6mg Tab) 2 tab PO HS YENNY Stop: 05/23/24 20:59 Sertraline HCl (Sertraline Hcl 50 Mg Tablet) 50 mg PO HS YENNY Stop: 05/23/24 20:59 Sodium Biphosphate/Sodium Phosphate (Sod Phosphate/Sod Biphosphate Enema 132 Ml Btl) 132 ml MI ONE PRN PRN Reason: Constipation Stop: 05/23/24 15:56 Sodium Chloride (Sodium Chloride 5% Op Soln 15 Ml Btl) 1 drops OP QID [facility] Stop: 05/23/24 16:59 Tramadol HCl (Tramadol Hcl 50 Mg Tablet) 50 - 100 mg PO Q4H PRN PRN Reason: Moderate-Severe pain & Pre PT Stop: 05/23/24 15:56 Last Admin: 04/23/24 16:50 Dose: 100 mg Vitamin D (Cholecalciferol 25 Mcg (1000 Units) Tab) 25 mcg PO BID [facility] Stop: 05/23/24 20:59 ECG Additional Comments: I have independently reviewed and interpreted patient's admitting EKG which revealed: NSR, no st or t wave changes 77bpm
[2024-04-23] MEDS: SODIUM CHLORIDE 5% OP SOLN 15 ML BTL OP SCH (17:39)
[2024-04-23 17:51] LABS: Appearance Urine Clear (Clear); Bacteria Urine Automated None Seen (None Seen); Bilirubin Urine Negative (Negative); Blood Urine Trace (Negative); Cast Urine Automated 0-2 /lpf (0-2); Color Urine Yellow; Epithelial Cell Urine Auto 0-2 /hpf (0-2); Glucose Urine UA Negative (Negative); Ketones Urine Trace (Negative); Leukocyte Esterase Urine Negative (Negative); Nitrite Urine Negative (Negative); Protein Urine Negative (Negative); Specific Gravity Urine 1.015 (1.000-1.030); Urobilinogen Urine Negative (Negative); WBC Urine Automated 0-5 /hpf (0-5); pH Urine 6.5 (4.5-7.5)
[2024-04-23] MEDS: HYDROCODONE/ACETAMOPHEN 5/325MG TAB PO PRN (18:02)
[2024-04-23] MEDS: ONDANSETRON INJ 2 MG/ML 2 ML VIAL IV PRN (18:02)
[2024-04-23] MEDS: ASPIRIN 81 MG ECTAB PO SCH (20:03)
[2024-04-23] MEDS: DOCUSATE SODIUM/SENNA 50/8.6MG TAB PO SCH (20:03)
[2024-04-23] MEDS: POTASSIUM CHLORIDE CRTAB 20 MEQ TABCR PO SCH (20:03)
[2024-04-23] MEDS: CALCIUM 600MG + VIT D 400 IU TAB PO SCH (20:04)
[2024-04-23] MEDS: ATENOLOL 25 MG TABLET PO SCH (20:04)
[2024-04-23] MEDS: HYDROXYCHLOROQUINE SULFATE 200 MG TAB PO SCH (20:05)
[2024-04-23] MEDS: CHOLECALCIFEROL 25 MCG (1000 UNITS) TAB PO SCH (20:05)
[2024-04-23] MEDS: FOLIC ACID 400 MCG TAB PO SCH (20:05)
[2024-04-23] MEDS: SERTRALINE HCL 50 MG TABLET PO SCH (20:06)
[2024-04-24] MEDS: POLYETHYLENE (MIRALAX) 17 GM PACK PO SCH (05:29)
--- NOTE | 2024-04-24 07:54 | Hospitalist Progress Note ---
<Statement entered by Barrett Charles DO - 04/24/24 16:23> I have seen and examined the patient and have discussed the case with the advance practice provider. I have reviewed the advanced practitioner's documentation, and I agree with, and take responsibility for that plan of care. Patient overall seems to be improving. Complete course of antibiotics for UTI diagnosed prior to admission, current urinalysis and culture unremarkable, no additional antibiotics needed Further plan of care as outlined below I spent a total of 14 minutes coordinating, documenting, and providing care for this patient excluding time spent by another provider/QHP. Date of Service April 24, 2024 Assessment & Plan (1) Multilevel lumbosacral spondylosis with radiculopathy: (2) S/P spinal surgery: (3) Acute blood loss anemia: Plan [place] is a 73y/o F with PMHx significant for osteoporosis, ELLIE on CPAP, rheumatoid arthritis, psoriasis, IBS-C, HTN, fibromyalgia, depression with anxiety and history of RLE DVT on Eliquis who was referred to our [facility] service for routine postoperative medical management after undergoing elective L3-S1 decompression and fusion performed by Dr. Pyle on 04/23/24. Multilevel lumbosacral spondylosis with radiculopathy s/p surgery: POD #1 elective L3-S1 decompression and fusion performed by Dr. Pyle on 04/23/24. Per ortho for pain control, wound care, anticoagulation and activities. Continue incentive spirometry, PT/OT when appropriate as per ortho team. Leukocytosis likely 2/2 pain + Decadron. Acute blood loss anemia: Preoperative Hgb 13 (as of 02/01/24); Hgb downtrended to 10.1 today 2/2 expected surgical blood loss [[id number]] + likely dilutional component as well. No indication to transfuse at this time. Continue to monitor Hgb closely and transfuse PRN. Rheumatoid arthritis: Chronic, stable. On MTX and hydroxychloroquine as an o/p. Can resume MTX on discharge. H/O RLE DVT: Reportedly diagnosed in late 2022 per patient. Eliquis currently on hold - will need to be resumed at the discretion of the primary service. HTN: Noted to be mildly hypotensive and lightheaded with movement this morning. Holding amlodipine 5mg daily and indapamide 2.5mg daily for now. Continue to monitor BP closely, may benefit from additional gentle IVF if no improvement. Continue atenolol 25mg HS. IBS-C: Continue Linzess and daily bowel regimen. No BM yet since surgery. Judicious narcotic use ISO chronic constipation. Recent UTI: Patient recently on amoxicillin for UTI diagnosed as an o/p. Appears she was prescribed 5-day amoxicillin course on 04/19/24. Completed 4 days of amoxicillin treatment prior to surgery. Did obtain urine culture from her PCP which grew Group B streptococcus. Patient with some dysuria this morning however repeat UA this admission is negative therefore no further treatment warranted at this time. Azo ordered for dysuria. Suspect dysuria may also be 2/2 traumatic Gonzáles catheter placement as her UA did have evidence of RBCs/trace blood. Other chronic medical conditions: ELLIE - Continue CPAP HS. Obesity - BMI 38.1 this admission, encourage diet/lifestyle measures when able. DVT Prophylaxis: SCDs/TEDs as per primary service. HEAD OF MAINTENANCE Eliquis on hold as per above. Code Status: FULL CODE PCP: Ketan Donald PA-C at [facility] Disposition: Discharge planning as per primary service. Thank you for this consultation. We will follow the patient with you during their hospital stay. You can reach a member of the [facility] Hospitalist Team 11/10 via DashBurst. Patient seen in collaboration with Dr. Charles. Please see addendum. I spent a total of 40 minutes coordinating, documenting, and providing care for this patient excluding time spent in the performance of separately billed services or time spent by another provider/QHP. This included personally reviewing all current laboratories and imaging studies, medical reconciliation, outpatient chart review and discussion with specialists. This chart was completed in part utilizing Speech Voice Recognition Software. Grammatical errors, random word insertions, pronoun errors, and incomplete sentences are an occasional consequence of this system due to software limitations, ambient noise, and hardware issues. Any formal questions or concerns about the content, text, or information contained within the body of this dictation should be directly addressed to the provider for clarification. Admission and Anticipated Discharge Date Admission Date: April 23, 2024 Subjective Patient seen and examined in room N382-1 this morning. Underwent elective L3-S1 decompression and fusion performed by Dr. Pyle yesterday. Currently she is endorsing a moderate amount of postoperative back pain however she has yet to receive her pain medications this morning. She is tolerating a diet without issu e. Patient is from [place], [place] and follows with a PCP [Ketan Donald PA-C] at [facility] which is located in [place]. Patient to work with PT/OT today. She is planning on returning back home at discharge. Review of Systems Review of Systems: At least ten systems reviewed and negative, except as noted in the subjective section. Physical Exam Physical Exam: General: Obese F, sitting up in bed, very pleasant, conversing appropriately. A+Ox3, euthymic affect. HEENT: Normocephalic, atraumatic. Conjunctivae normal. External ear and nose normal, oropharynx normal. Respiratory: Normal respiratory effort, lungs clear to auscultation bilaterally. Saturating well on RA. NAD. Cardiovascular: Regular rate/rhythm, normal peripheral pulses, no BLE edema. Vessels: No JVD. Abdomen/GI: Normal bowel sounds, soft, nondistended, nontender to palpation in all quadrants. : Gonzáles catheter intact and draining clear/yellow urine without any issue. Extremities/Musculoskeletal: No cyanosis or clubbing, surgical dressing C/D/I, ALHAJI drain x 1 with serosanguineous output. Results & Data Results & Data Vital Signs (Past 12 Hours) Vital Signs Temp Pulse Pulse Resp BP Pulse Ox O2 Del Method 04/24/24 07:40 36.6 C 68 18 108/68 95 Room Air 04/24/24 03:20 36.7 C 70 18 104/60 94 Nasal Cannula 04/23/24 22:40 36.6 C 74 18 108/60 93 Nasal Cannula 04/23/24 20:03 Nasal Cannula, CPAP O2 Flow Rate 04/24/24 07:40 04/24/24 03:20 2 04/23/24 22:40 2 04/23/24 20:03 2 Laboratory Results Short CBC 04/24/24 Range/Units 07:50 WBC 16.67 H (4.8-10.8) K/ul Hgb 10.1 L (12.0-16.0) g/dl Hct 30.6 L (37.0-47.0) % Plt Count 192 (130-400) K/uL BMP 04/24/24 07:50 Sodium 133 L Potassium 4.3 Chloride 99 Carbon Dioxide 28 BUN 14 Creatinine 0.62 Glucose 146 H Calcium 9.0 Urine 04/23/24 Range/Units 17:30 Urine Color Yellow Urine Appearance Clear (Clear) Urine pH 6.5 (4.5-7.5) Ur Specific [place] 1.015 (1.000-1.030) Urine Protein Negative (Negative) Urine Glucose (UA) Negative (Negative)
[2024-04-24 08:36] LABS: Basophils # (auto) 0.02 K/uL (0.00-0.20); Basophils % (auto) 0.1 %; Hematocrit (blood only) 30.6 % (37.0-47.0); Hemoglobin 10.1 g/dl (12.0-16.0); Immature Granulocytes % (auto) 0.6 %; Lymphocytes # (auto) 1.04 K/uL (1.20-3.40); Lymphocytes % (auto) 6.2 %; Mean Corpuscular Hemoglobin 31.3 pg (25.0-34.0); Mean Corpuscular Volume 94.7 fL (80.0-100.0); Mean Platelet Volume 10.4 fL (9.4-12.4); Monocytes # (auto) 1.34 K/uL (0.11-0.59); Neutrophils # (auto) 14.17 K/uL (1.40-6.50); Neutrophils % (auto) 85.1 %; Platelet Count 192 K/uL (130-400); RDW Coefficient of Variation 13.8 % (11.5-14.5); RDW Standard Deviation 47.9 fL (36.4-46.3); Red Blood Count 3.23 M/uL (4.20-5.40); White Blood Count 16.67 K/ul (4.8-10.8)
[2024-04-24 08:50] LABS: BUN Creatinine Ratio 22.6 (10-20); Creatinine Clr Calc Pharmacy 89.9 ml/min; Potassium 4.3 mmol/L (3.5-5.1)
--- NOTE | 2024-04-24 10:15 | Orthopedic Progress Note ---
Date of Service April 24, 2024 Assessment & Plan (1) Multilevel lumbosacral spondylosis with radiculopathy: Plan: This time we will continue physical therapy monitor ALHAJI output hopefully discharge home in the next few days. Admission and Anticipated Discharge Date Admission Date: April 23, 2024 Subjective Back pain controlled leg pain improved Physical Exam Physical Exam: Patient seen with bedside. She is comfortable. Good strength testing. Results & Data Vital Signs (Past 12 Hours) Vital Signs Temp Pulse Pulse Resp BP Pulse Ox O2 Del Method 04/24/24 07:40 36.6 C 68 18 108/68 95 Room Air 04/24/24 03:20 36.7 C 70 18 104/60 94 Nasal Cannula 04/23/24 22:40 36.6 C 74 18 108/60 93 Nasal Cannula O2 Flow Rate 04/24/24 07:40 04/24/24 03:20 2 04/23/24 22:40 2 Queries Orthopedic Spine Acute Posthemorrhagic Anemia: Yes Obesity: Yes
[2024-04-24] MEDS: amLODIPine BESYLATE 5 MG TAB PO SCH (10:43)
[2024-04-24] MEDS: GABAPENTIN 100 MG CAP PO SCH (10:53)
[2024-04-24] MEDS: LINACLOTIDE 145 MCG CAPSULE PO SCH (10:54)
[2024-04-24] MEDS: dexAMETHasone 6 MG in SYRINGE 0 ML IV SCH (10:54)
[2024-04-24] MEDS: INDAPAMIDE 1.25 MG TAB PO SCH (10:54)
[2024-04-24] MEDS: PHENAZOPYRIDINE HCL 100 MG TAB PO SCH (14:58)
[2024-04-25 09:20] LABS: Hematocrit (blood only) 29.2 % (37.0-47.0); Hemoglobin 9.8 g/dl (12.0-16.0); Mean Corpuscular Hemoglobin 31.9 pg (25.0-34.0); Mean Corpuscular Hgb Conc 33.6 g/dL (32.0-36.0); Mean Corpuscular Volume 95.1 fL (80.0-100.0); Mean Platelet Volume 10.9 fL (9.4-12.4); Platelet Count 184 K/uL (130-400); RDW Coefficient of Variation 13.7 % (11.5-14.5); RDW Standard Deviation 47.3 fL (36.4-46.3); Red Blood Count 3.07 M/uL (4.20-5.40); White Blood Count 17.53 K/ul (4.8-10.8)
[2024-04-25 09:42] LABS: BUN Creatinine Ratio 28.1 (10-20); Calcium 9.4 mg/dl (8.6-10.3); Creatinine Clr Calc Pharmacy 97.7 ml/min; Magnesium 1.7 mg/dl (1.7-2.4); Potassium 4.1 mmol/L (3.5-5.1)
--- NOTE | 2024-04-25 12:20 | Orthopedic Progress Note ---
Date of Service April 25, 2024 Assessment & Plan (1) Multilevel lumbosacral spondylosis with radiculopathy: Plan: This time we will continue physical therapy monitor ALHAJI operatively discharge home in the next few days. Admission and Anticipated Discharge Date Admission Date: April 23, 2024 Subjective Patient's back pain is controlled leg pain improved. She is tolerating physical therapy. Physical Exam Physical Exam: Patient is currently in bed. She is comfortable. Good strength testing. Results & Data Vital Signs (Past 12 Hours) Vital Signs Temp Pulse Resp BP Pulse Ox O2 Del Method 04/25/24 09:01 Room Air 04/25/24 07:02 36.5 C 69 16 119/72 95 Room Air Queries Orthopedic Spine Acute Posthemorrhagic Anemia: Yes Obesity: Yes
--- NOTE | 2024-04-25 15:50 | Hospitalist Progress Note ---
Date of Service April 25, 2024 Assessment & Plan (1) Multilevel lumbosacral spondylosis with radiculopathy: (2) S/P spinal surgery: (3) Acute blood loss anemia: Plan [place] Radford is a 73y/o F with PMHx significant for osteoporosis, ELLIE on CPAP, rheumatoid arthritis, psoriasis, IBS-C, HTN, fibromyalgia, depression with anxiety and history of RLE DVT on Eliquis who was referred to our hospital medicine service for routine postoperative medical management after undergoing elective L3-S1 decompression and fusion performed by Dr. Pyle on 04/23/24. Multilevel lumbosacral spondylosis with radiculopathy s/p surgery: POD #2 elective L3-S1 decompression and fusion performed by Dr. Pyle on 04/23/24. Per ortho for pain control, wound care, anticoagulation and activities. Continue incentive spirometry, PT/OT when appropriate as per ortho team. Leukocy tosis likely 2/2 pain + Decadron. Acute blood loss anemia: Preoperative Hgb 13 (as of 02/01/24); Hgb downtrended to 9.8 today 2/2 expected surgical blood loss [[id number]] + likely dilutional component as well. No indication to transfuse at this time. Continue to monitor Hgb closely and transfuse PRN. Rheumatoid arthritis: Chronic, stable. On MTX and hydroxychloroquine as an o/p. Can resume MTX on discharge. H/O RLE DVT in 2022: Reportedly diagnosed in late 2022 per patient. Eliquis currently on hold - will need to be resumed at the discretion of the primary service. HTN: Still relative hypotensive this morning but otherwise VSS. Continue to hold amlodipine 5mg daily and indapamide 2.5mg daily for now. Continue to monitor BP closely, will give some gentle IVF x 1 bag. Continue atenolol 25mg HS. IBS-C: Continue Linzess and daily bowel regimen. No BM yet since surgery. Judicious narcotic use ISO chronic constipation. Recent UTI: Patient recently on amoxicillin for UTI diagnosed as an o/p. Appears she was prescribed 5-day amoxicillin course on 04/19/24. Completed 4 days of amoxicillin treatment prior to surgery. Did obtain urine culture from her PCP which grew Group B streptococcus. Patient with some dysuria on 2/4 however repeat UA this admission was negative therefore no further treatment warranted at this time. PRN Azo ordered. Gonzáles catheter has been removed. Dysuria likely 2/2 traumatic Gonzáles catheter placement as her UA did have evidence of RBCs/trace blood - now improved. Other chronic medical conditions: ELLIE - Continue CPAP HS. Obesity - BMI 38.1 this admission, encourage diet/lifestyle measures when able. DVT Prophylaxis: SCDs/TEDs as per primary service. [employer] Eliquis on hold as per above. Code Status: FULL CODE PCP: Ketan Donald PA-C at [facility] Disposition: Discharge planning as per primary service. Likely to require SNF placement on discharge, CM involved. Thank you for this consultation. We will follow the patient with you during their hospital stay. You can reach a member of the [facility] Hospitalist Team 11/10 via [employer]. Patient seen in collaboration with Dr. Baig. Please see addendum. I spent a total of 30 minutes coordinating, documenting, and providing care for this patient excluding time spent in the performance of separately billed services or time spent by another provider/QHP. This included personally reviewing all current laboratories and imaging studies, medical reconciliation, outpatient chart review and discussion with specialists. This chart was completed in part utilizing Speech Voice Recognition Software. Grammatical errors, random word insertions, pronoun errors, and incomplete sentences are an occasional consequence of this system due to software limitations, ambient noise, and hardware issues. Any formal questions or concerns about the content, text, or information contained within the body of this dictation should be directly addressed to the provider for clarification. Admission and Anticipated Discharge Date Admission Date: April 23, 2024 Supervising Physician Co-Signing Physician Notes I have seen and discussed the case with the collaborating advanced practitioner. I agree with the above PN. I have reviewed and confirmed the patients medical history, the findings on physical examination, and the patients diagnosis and treatment plan with Jayshree ALMODOVAR and agree with the information documented. In short, Ms Radford is a 73 yo woman consulted s/p elective L3-S1 decompression and fusion performed by Dr. Pyle on 04/23/24 patient with hyponatremia--will repeat bmp, order osmo serum and urine and follow up, suspect componenet of siadh likely acute blood loss anemia expected post op, no indication for transfusion monitor bp for resumption of home meds I spent a total of 10 minutes coordinating, documenting, and providing care for this patient excluding time spent in the performance of separately billed services. All of the aforementioned completed outside of collaborating with the assigned advanced practitioner for a full treatment plan. I have reviewed the advanced practitioner's documentation, and I agree with, and take responsibility for the plan of care Subjective Patient seen and examined in room N382-1. at bedside. Endorses good pain control. Passing gas but no BM yet postoperatively. PT/OT recommending rehab placement before returning home. Patient mentions she has spoke with CM regarding referrals. Review of Systems Review of Systems: At least ten systems reviewed and negative, except as noted in the subjective section. Physical Exam Physical Exam: General: Obese F, sitting up in bed, very pleasant, conversing appropriately. A+Ox3, euthymic affect. at bedside. HEENT: Normocephalic, atraumatic. Conjunctivae normal. External ear and nose normal, oropharynx normal. Respiratory: Normal respiratory effort, lungs clear to auscultation bilaterally. Saturating well on RA. NAD. Cardiovascular: Regular rate/rhythm, normal peripheral pulses, no BLE edema. Vessels: No JVD. Abdomen/GI: Active bowel sounds, soft, nondistended, nontender to palpation in all quadrants. Extremities/Musculoskeletal: No cyanosis or clubbing, surgical dressing C/D/I, ALHAJI drain x 1 with serosanguineous output. Results & Data Results & Data Vital Signs (Past 12 Hours) Vital Signs Temp Pulse Resp BP Pulse Ox O2 Del Method 04/25/24 14:48 36.4 C L 73 18 103/59 L 92 Room Air 04/25/24 09:01 Room Air 04/25/24 07:02 36.5 C 69 16 119/72 95 Room Air Laboratory Results Short CBC 04/25/24 Range/Units 08:27 WBC 17.53 H (4.8-10.8) K/ul Hgb 9.8 L (12.0-16.0) g/dl Hct 29.2 L (37.0-47.0) % Plt Count 184 (130-400) K/uL BMP 04/25/24 08:27 Sodium 130 L Potassium 4.1 Chloride 95 L Carbon Dioxide 31 BUN 16 Creatinine 0.57 L Glucose 98 Calcium 9.4
[2024-04-25] MEDS: SODIUM CHLORIDE 0.9% 1,000 ML IV SCH (16:24)
[2024-04-25] MEDS: ACETAMINOPHEN 500 MG TAB PO PRN (16:28)
[2024-04-25 20:17] LABS: BUN Creatinine Ratio 26.1 (10-20); Calcium 8.1 mg/dl (8.6-10.3); Creatinine Clr Calc Pharmacy 80.7 ml/min; Potassium 4.2 mmol/L (3.5-5.1)
[2024-04-26 07:06] LABS: Hemoglobin 9.1 g/dl (12.0-16.0); Mean Corpuscular Hemoglobin 31.7 pg (25.0-34.0); Mean Corpuscular Hgb Conc 33.7 g/dL (32.0-36.0); Mean Corpuscular Volume 94.1 fL (80.0-100.0); Mean Platelet Volume 10.4 fL (9.4-12.4); Platelet Count 230 K/uL (130-400); RDW Coefficient of Variation 13.5 % (11.5-14.5); RDW Standard Deviation 46.6 fL (36.4-46.3); Red Blood Count 2.87 M/uL (4.20-5.40); White Blood Count 13.89 K/ul (4.8-10.8)
[2024-04-26 07:34] LABS: BUN Creatinine Ratio 28.9 (10-20); Calcium 9.3 mg/dl (8.6-10.3); Creatinine Clr Calc Pharmacy 123.8 ml/min; Magnesium 1.7 mg/dl (1.7-2.4)
--- NOTE | 2024-04-26 10:23 | Orthopedic Progress Note ---
Date of Service April 26, 2024 Assessment & Plan (1) Multilevel lumbosacral spondylosis with radiculopathy: Plan: At this point we will continue physical therapy change dressing DC drain today. Anticipate rehab hopefully tomorrow. Admission and Anticipated Discharge Date Admission Date: April 23, 2024 Subjective Patient is tolerating physical therapy. She is planning for rehab. Physical Exam Physical Exam: On exam she is currently in bed. She does have some evidence of trochanteric bursitis on the left. Neurologically intact. Results & Data Vital Signs (Past 12 Hours) Vital Signs Temp Pulse Resp BP Pulse Ox O2 Del Method 04/26/24 07:19 36.5 C 67 18 103/60 94 Room Air 04/25/24 22:45 Room Air Queries Orthopedic Spine Acute Posthemorrhagic Anemia: Yes Obesity: Yes
--- NOTE | 2024-04-26 12:20 | Hospitalist Progress Note ---
Date of Service April 26, 2024 Assessment & Plan (1) Multilevel lumbosacral spondylosis with radiculopathy: (2) S/P spinal surgery: (3) Acute blood loss anemia: Plan [place] Radford is a 73y/o F with PMHx significant for osteoporosis, ELLIE on CPAP, rheumatoid arthritis, psoriasis, IBS-C, HTN, fibromyalgia, depression with anxiety and history of RLE DVT on Eliquis who was referred to our hospital medicine service for routine postoperative medical management after undergoing elective L3-S1 decompression and fusion performed by Dr. Pyle on 04/23/24. Multilevel lumbosacral spondylosis with radiculopathy s/p surgery POD #3 elective L3-S1 decompression and fusion performed by Dr. Pyle on 04/23/24. Activity and wound care orders as per ortho Pain control with bowel regimen PT/OT EBL 600cc Acute blood loss anemia Preoperative Hgb 13 (as of 02/01/24) -> 10.1 -> 9.8 -> 9.1 Due to surgical blood loss [[id number]], ALHAJI output 328ml, + likely dilutional component as well. No indication to transfuse at this time. Continue to monitor Hgb closely and transfuse PRN. Leukocytosis WBC 16K -> 17K -> 13K Likely due to steroids, afebrile, no signs of infection Hyponatremia Na+ 133 -> 130 -> 127 -> 131 Received some IVF yesterday and indapamide is on hold due to borderline low BPs Continue to monitor Rheumatoid arthritis Chronic, stable On MTX and hydroxychloroquine as an o/p. Can resume MTX on discharge. H/O RLE DVT in 2022 Reportedly diagnosed in late 2022 per patient. Eliquis currently on hold - will need to be resumed at the discretion of the primary service. HTN: BPs remain borderline low, asymptomatic Continue to hold amlodipine 5mg daily and indapamide 2.5mg daily for now. Continue atenolol 25mg HS. IBS-C Continue Linzess and daily bowel regimen. Judicious narcotic use ISO chronic constipation. No BM yet, receiving PRN bowel regimen meds today Recent UTI Patient recently on amoxicillin for UTI diagnosed as an o/p. Appears she was prescribed 5-day amoxicillin course on 04/19/24. Completed 4 days of amoxicillin treatment prior to surgery. Did obtain urine culture from her PCP which grew Group B streptococcus. Patient with some dysuria on 04/24 however repeat UA this admission was negative therefore no further treatment warranted at this time. PRN Azo ordered. Gonzáles catheter has been removed. Dysuria likely 2/2 traumatic Gonzáles catheter placement as her UA did have evidence of RBCs/trace blood - now improved. ELLIE Continue CPAP HS Obesity BMI 38.1 this admission, encourage diet/lifestyle measures when able. DVT Prophylaxis SCDs/TEDs as per primary service. [employer] Eliquis on hold as per above. Code Status: FULL CODE PCP: Ketan Donald PA-C at [facility] Disposition: Discharge planning as per primary service. Possible d/c to [facility] tomorrow. Thank you for this consultation. We will follow the patient with you during their hospital stay. You [facility] a [facility] via [employer]. I spent a total of 20 minutes coordinating, documenting, and providing care for this patient excluding time spent in the performance of separately billed services. This included personally reviewing all current laboratories and imaging studies, medication reconciliation, outpatient chart review, and discussion with specialists. Admission and Anticipated Discharge Date Admission Date: April 23, 2024 Supervising Physician Co-Signing Physician Notes I have seen and discussed the case with the collaborating advanced practitioner. I agree with the above PN. I have reviewed and confirmed the patients medical history, the findings on physical examination, and the patients diagnosis and treatment plan with Angélica KINNEY and agree with the information documented. In short, Ms Radford is a 73 yo woman consulted s/p elective L3-S1 decompression and fusion performed by Dr. Pyle on 04/23/24 patient with hyponatremia that is improving acute blood loss anemia expected post op, no indication for transfusion monitor bp for resumption of home meds I spent a total of 10 minutes coordinating, documenting, and providing care for this patient excluding time spent in the performance of separately billed services. All of the aforementioned completed outside of collaborating with the assigned advanced practitioner for a full treatment plan. I have reviewed the advanced practitioner's documentation, and I agree with, and take responsibility for the plan of care Subjective Follow-up for post op medical management, s/p L3-S1 decompression and fusion. Patient seen and examined. Sitting up in the chair, working with PT. Reports some left buttock pain similar to what she was experiencing prior to surgery. Also states she feels constipated. No abdominal pain or nausea. Denies chest pain and shortness of breath. Physical Exam Constitutional: WD/WN, vitals as above Respiratory: normal respiratory effort, lungs clear to auscultation Cardiovascular: Rate/Rhythm: regular rate and regular rhythm Vessels: normal peripheral pulses Extremities: no edema Gastrointestinal (Abdomen): Percussion/Palpation: abdomen soft; abdomen nontender Musculoskeletal: S/p back surgery, strength strong and equal BLE, drain in place draining a scant amount of bloody drainage Skin: no rashes, warm and dry Neurologic: no focal motor deficits Psychiatric: A+Ox3, euthymic affect Results & Data Results & Data Vital Signs (Past 12 Hours) Vital Signs Temp Pulse Resp BP Pulse Ox O2 Del Method 04/26/24 07:19 36.5 C 67 18 103/60 94 Room Air Laboratory Results Short CBC 04/26/24 Range/Units 06:37 WBC 13.89 H (4.8-10.8) K/ul Hgb 9.1 L (12.0-16.0) g/dl Hct 27.0 L (37.0-47.0) % Plt Count 230 (130-400) K/uL BMP 04/25/24 04/26/24 19:25 06:37 Sodium 127 L 131 L Potassium 4.2 4.0 Chloride 93 L 96 L Carbon Dioxide 29 30 BUN 18 13 Creatinine 0.69 0.45 L Glucose 156 H 98 Calcium 8.1 L 9.3
[2024-04-27 07:29] LABS: Hematocrit (blood only) 27.4 % (37.0-47.0); Hemoglobin 9.2 g/dl (12.0-16.0); Mean Corpuscular Hemoglobin 31.6 pg (25.0-34.0); Mean Corpuscular Hgb Conc 33.6 g/dL (32.0-36.0); Mean Corpuscular Volume 94.2 fL (80.0-100.0); Platelet Count 270 K/uL (130-400); RDW Coefficient of Variation 13.5 % (11.5-14.5); RDW Standard Deviation 46.4 fL (36.4-46.3); Red Blood Count 2.91 M/uL (4.20-5.40); White Blood Count 11.86 K/ul (4.8-10.8)
[2024-04-27 07:44] LABS: BUN Creatinine Ratio 27.1 (10-20); Calcium 9.2 mg/dl (8.6-10.3); Creatinine Clr Calc Pharmacy 116.1 ml/min; Magnesium 1.9 mg/dl (1.7-2.4); Potassium 4.2 mmol/L (3.5-5.1)
[2024-04-27 08:18] VITALS: RESP 14; TEMP 97.7
[2024-04-27] MEDS: APIXABAN 2.5 MG TAB PO SCH (10:14)
--- NOTE | 2024-04-27 11:33 | Discharge Summary ---
Date of Service April 27, 2024 Admission HPI Per Admitting Provider This is a 73-year-old female presents with chronic persistent back and bilateral leg pain after failing course of nonoperative care is here for surgical invention. Principal Diagnosis Lumbar spondylosis with radiculopathy Discharge Data Allergies Allergy/AdvReac Type Severity Reaction Status Date / Time metronidazole [From Flagyl] Allergy Intermediate Diarrhea Verified 04/23/24 09:30 Sulfa (Sulfonamide Allergy Intermediate Hives Verified 04/23/24 09:30 Antibiotics) tetracycline Allergy Intermediate Facial Verified 04/23/24 09:30 swelling codeine AdvReac Intermediate Gastrointestinal Verified 04/23/24 09:30 Upset diazepam [From Valium] AdvReac Intermediate Gastrointestinal Verified 04/23/24 09:30 Upset oxycodone AdvReac Intermediate Gastrointestinal Verified 04/23/24 09:30 Upset Consultations 04/23/24 15:57 Consult Hospitalist Routine Procedures Performed Operation Date: 04/23/24 10:05 Actual Procedures p L3-S1 Decompression and Fusion, Spinal Cord Monitoring(Not Applicable) - Dudley Plye DO Ordered Studies 04/23/24 10:05 FL lumbar spine 2-3V Routine Hospital Course (1) Multilevel lumbosacral spondylosis with radiculopathy: Patient went multilevel lumbar decompression fusion trial as well as taken orthopedic for postoperatively. Postop patient progressed slowly but appropriately. Pain controlled. Leg strength improved. ALHAJI drain decreasing. Subsidy discharged to rehab. Discharge orders instructions from the chart for further review. 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 You may walk to your tolerance. It is good exercise for your legs and back. Expect some back and intermittent leg aches and pains. 2. You may perform "counter-top" level activities (make a sandwich, kenneth with a project, etc.). 3. No bending or lifting of more than 10 pounds or back twisting of any nature (roll like a log when turning in bed). 4. You may ride in a car for 20-30 minutes at a time. No driving until after your first visit with your doctor. 5. Frequent changes of position and restricting sitting to 30 minutes at a time will help limit the amount of back spasms and stiffness you may experience. 6. You may discontinue the use of ambulatory aids (cane, crutches, etc.) once your strength and confidence allow. 7. You may refrigerator cabinetmaker the shower and let water strike your incision when you arrive home at least once daily. Do not take a tub bath, sit in a hot tub or go into a swimming pool until after your first recheck in the office. 8. You may resume previous diet. SPECIAL CARE INSTRUCTIONS: VERY IMPORTANT TO READ AND REVIEW A. Your surgical incision has been closed with a cosmetic suture under the skin that will dissolve in about 6 weeks. In 14 days, you can use a pair of clean scissors and cut the suture that is left outside of the skin at the ends of your incision. 1. The small skin tapes can be removed 7 days after surgery if they have not fallen off by that point. 2. You may keep the wound open to air as much as possible to promote healing after post-op day number 5 unless told otherwise by your doctor. 3. If you think the wound looks like it is becoming infected (redness or worsening drainage) and/or you are experiencing fever, chill or worsening back pain and muscle spasms, contact the office so that we may evaluate you as soon as possible. B. Complications are uncommon, but please contact us if you have any signs or symptoms of: 1. wound infection (fever higher than 102.5 degrees F, redness, separation of wound, drainage, or increasing pain from the incision) 2. blood clots in legs (pain, swelling, redness and warmth in legs) 3. urinary tract infection (fever higher than 102.5 degrees F, burning upon urination or increased frequency of urination) 4. nerve problems (inability to walk on your toes or heels, numbness, loss of bowel or bladder control) 5. any other symptoms that concern you C. Please call the office at if you have any concerns or questions about your operation or recovery. D. No smoking! Smoking drastically decreases the chance of a solid fusion. E. Do not take any anti-inflammatory medications (Indocin, Advil, Motrin, Aspirin, Naprosyn, etc.) as these may inhibit the chance of a solid fusion. Tylenol is okay to take for pain. MANAGING PAIN AFTER SPINAL SURGERY 1. Narcotic medication is intended for short-term use and will be provided for surgical pain. Surgical pain usually lasts for a period of 4-6 weeks. Narcotic medication includes Percocet, Vicodin, Darvocet, Tylenol #3 or Lortab. 2. Longer-term pain is more appropriately treated with non-narcotic medication such as Tylenol ES. 3. Muscle spasm is not appropriately treated with narcotics. Muscle relaxers such as Soma, Flexeril or Skelaxin can be used along with Tylenol ES. 4. Remember that we all live with some "aches and pains". This is not unusual or uncommon after an injury or as we get older. a. Back pain is expected and may include muscle spasms for 4 to 6 weeks after surgery. The pain should gradually improve. If the pain worsens for no apparent reason, please contact the office. b. Intermittent leg pain may also be experienced and should not be concerned about unless it worsens for no apparent reason. If so, please contact the office. 5. We will provide appropriate medication within the normal guidelines of their prescribed use. We will also be very cautious and aware of potential abuse and extended duration of patients' medication needs. a. Pain medications are for your comfort and to assist with sleep and rest so that the tissue can heal. They are not provided in order to return to normal activity and should not be used through the day. To do so or worsening pain at night can result from ongoing tissue damage and development of tolerance to the prescribed medicine. 6. Please allow 2-3 days to process refills. Prescriptions will not be mailed but must be picked up at the office. FOLLOW UP VISIT: Keep your scheduled follow-up appointment. Any questions, please call the office at . Addtl Molder Shoulder Pad Provider Instructions: Hospitalist Discharge Instructions: STOP taking Amlodipine and indapamide due to low blood pressure. You may resume your methotrexate on 05/14/24. Take Vitamin D 5,000 units daily. Follow-up with your PCP for blood pressure monitoring and further instructions regarding these medications. NIRMAL Agosto [facility] Hospitalist Pending Studies at Discharge: No Stand-Alone Forms: My [facility] TranscribeMe, Smoking Cessation Skilled Items Patient informed of condition?: Yes DNR: No Discharge Level of Care: Acute rehab Communicable Disease: No Discharge Prognosis: Improving Lines: None Urinary Catheter: No Medications and DC Order Prescriptions: New hydrocodone-acetaminophen 5-325 mg tablet 1 tab PO Q6H PRN (Reason: pain) Qty: 30 0RF Continued alendronate 70 mg Tablet 70 mg PO Q7D Rx Instructions: Tuesday atenolol 25 mg Tablet 25 mg PO HS acetaminophen 500 mg Tablet 500 mg PO QID PRN (Reason: Pain) clobetasol 0.05 % Gel 1 applic TOPICAL DAILY PRN (Reason: Skin Irritation) gabapentin 100 mg Capsule 100 mg PO QAM hydroxychloroquine [Plaquenil] 200 mg Tablet 200 mg PO BID sertraline [Zoloft] 50 mg Tablet 50 mg PO HS ketoconazole 1 % Shampoo 1 applic TOPICAL Q3D folic acid 800 mcg Tablet 0.16 mg PO BID Viactiv 500 mg-100 unit -40 mcg Tablet,Chewable 1 tab PO BID Linzess 145 mcg Capsule 145 mcg PO QAM Eliquis 2.5 mg Tablet 2.5 mg PO BID potassium chloride 20 mEq Tablet Extended Release 20 meq PO BID aspirin 81 mg Capsule 81 mg PO HS sodium chloride [Tejinder 128] 5 % Drops 1 drp OPHTHALMIC (EYE) QID gabapentin 300 mg Capsule 300 mg PO HS loratadine [Claritin] 10 mg Tablet 10 mg PO DAILY PRN (Reason: Allergy Symptoms) collagen 1 dose PO DAILY Patient Comments: powder polyethylene glycol 3350 [Miralax] 17 gram/dose Powder 17 g PO QAM psyllium husk [Metamucil] 0.52 gram Capsule 0.52 g PO HS Changed cholecalciferol (vitamin D3) [Vitamin D3] 125 mcg (5,000 unit) Tablet 125 mcg PO DAILY Qty: 0 0RF Held methotrexate sodium [Methotrexate (Anti-Rheumatic)] 2.5 mg Tablet 12.5 mg PO Q7D Patient Comments: sundays Discontinued indapamide 2.5 mg Tablet 2.5 mg PO QAM amlodipine 5 mg Tablet 5 mg PO QAM Discharge Orders: Discharge Order (Routine); Ordered 04/27/24 Ordered By: Dudley Pyle Admission Data Admit Date/Time: 04/23/24 14:48 Attending Provider: Dudley Pyle Admit Provider: Dudley Pyle Primary Care Provider: Ketan Donald Other Providers: Celi Guzmán; Barrett Charles
[2024-04-27 12:21] VITALS: BP 116/66; PULSE 68; O2SAT 96
--- NOTE | 2024-04-27 14:23 | Hospitalist Progress Note ---
Date of Service April 27, 2024 Assessment & Plan (1) Multilevel lumbosacral spondylosis with radiculopathy: (2) S/P spinal surgery: (3) Acute blood loss anemia: Plan [place] Radford is a 73y/o F with PMHx significant for osteoporosis, ELLIE on CPAP, rheumatoid arthritis, psoriasis, IBS-C, HTN, fibromyalgia, depression with anxiety and history of RLE DVT on Eliquis who was referred to our hospital medicine service for routine postoperative medical management after undergoing elective L3-S1 decompression and fusion performed by Dr. Pyle on 04/23/24. Multilevel lumbosacral spondylosis with radiculopathy s/p surgery POD #4 elective L3-S1 decompression and fusion performed by Dr. Pyle on 04/23/24. Activity and wound care orders as per ortho Pain control with bowel regimen PT/OT EBL 600cc Acute blood loss anemia Preoperative Hgb 13 (as of 02/01/24) -> 10.1 -> 9.8 -> 9.1 -> 9.2 Due to surgical blood loss [IHP=[id number]], ALHAJI output 328ml, + likely dilutional component as well. No indication to transfuse at this time. Continue to monitor Hgb closely and transfuse PRN. Leukocytosis WBC 16K -> 17K -> 13K -> 11K Likely due to steroids, afebrile, no signs of infection Hyponatremia Na+ 133 -> 130 -> 127 -> 131 -> 134 Received some IVF yesterday and indapamide is on hold due to borderline low BPs Continue to monitor Rheumatoid arthritis Chronic, stable On MTX and hydroxychloroquine as an o/p. Can resume MTX in [address] Pyle H/O RLE DVT in 2022 Reportedly diagnosed in late 2022 per patient. Per discussion with Dr. Pyle, can resume Eliquis today. Patient confirmed she has been taking Eliquis 2.5 mg twice daily for prophylaxis. HTN: BPs remain intermittently borderline low, asymptomatic Continue to hold amlodipine 5mg daily and indapamide 2.5mg daily for now. Continue atenolol 25mg HS. IBS-C Continue Linzess and daily bowel regimen. Judicious narcotic use ISO chronic constipation. + BM Recent UTI Patient recently on amoxicillin for UTI diagnosed as an o/p. Appears she was prescribed 5-day amoxicillin course on 04/19/24. Completed 4 days of amoxicillin treatment prior to surgery. Did obtain urine culture from her PCP which grew Group B streptococcus. Patient with some dysuria on 04/24 however repeat UA this admission was negative therefore no further treatment warranted at this time. PRN Azo ordered. Gonzáles catheter has been removed. Dysuria likely 2/2 traumatic Gonzáles catheter placement as her UA did have evidence of RBCs/trace blood - now improved. ELLIE Continue CPAP HS Obesity BMI 38.1 this admission, encourage diet/lifestyle measures when able. DVT Prophylaxis SCDs/TEDs as per primary service. Resuming Eliquis as above. Code Status: FULL CODE PCP: Ketan Donald PA-C at [facility] Disposition: Discharge planning as per primary service. Medically stable for discharge. Thank you for this consultation. We will follow the patient with you during their hospital stay. You can reach a member of the [facility] Team 11/10 via [employer]. I spent a total of 20 minutes coordinating, documenting, and providing care for this patient excluding time spent in the performance of separately billed services. This included personally reviewing all current laboratories and imaging studies, medication reconciliation, outpatient chart review, and discussion with specialists. Admission and Anticipated Discharge Date Admission Date: April 23, 2024 Supervising Physician Co-Signing Physician Notes I have seen and discussed the case with the collaborating advanced practitioner. I agree with the above PN. I have reviewed and confirmed the patients medical history, the findings on physical examination, and the patients diagnosis and treatment plan with Angélica KINNEY and agree with the information documented. In short, Ms Radford is a 73 yo woman consulted s/p elective L3-S1 decompression and fusion performed by Dr. Pyle on 04/23/24 patient with hyponatremia that continues to approve acute blood loss anemia expected post op, no indication for transfusion monitor bp for resumption of home meds I spent a total of 10 minutes coordinating, documenting, and providing care for this patient excluding time spent in the performance of separately billed services. All of the aforementioned completed outside of collaborating with the assigned advanced practitioner for a full treatment plan. I have reviewed the advanced practitioner's documentation, and I agree with, and take responsibility for the plan of care Subjective Follow-up for post op medical management, s/p L3-S1 decompression and fusion. Patient seen and examined. observed patient ambulating with walker back from bathroom. Reports having bowel movement yesterday and this morning, bloating is improved. pain is controlled. No chest pain or shortness of breath. Denies lightheadedness and dizziness. Physical Exam Constitutional: WD/WN, vitals as above no acute distress Respiratory: normal respiratory effort, lungs clear to auscultation Cardiovascular: Rate/Rhythm: regular rate and regular rhythm Vessels: normal peripheral pulses Extremities: no edema Musculoskeletal: S/p back surgery Skin: no rashes, warm and dry Neurologic: no focal motor deficits Psychiatric: A+Ox3, euthymic affect Results & Data Results & Data Vital Signs (Past 12 Hours) Vital Signs Temp Pulse Pulse Resp BP Pulse Ox O2 Del Method 04/27/24 12:14 36.5 C 68 14 116/66 96 Room Air 04/27/24 08:11 36.5 C 62 14 122/74 95 Room Air 04/27/24 07:25 36.6 C 65 20 153/87 H 95 Room Air Laboratory Results Short CBC 04/27/24 Range/Units 07:05 WBC 11.86 H (4.8-10.8) K/ul Hgb 9.2 L (12.0-16.0) g/dl Hct 27.4 L (37.0-47.0) % Plt Count 270 (130-400) K/uL BMP 04/27/24 07:05 Sodium 134 L Potassium 4.2 Chloride 98 Carbon Dioxide 30 BUN 13 Creatinine 0.48 L Glucose 108 H Calcium 9.2
== END 2024-04-27 16:18 | disposition home health service (06) | DRG 427 ==
LOC: ASU 08:26 → 3N 14:48 → 3E 04-25 22:30